=== PATIENT | male | born 1940 | race Caucasian/White ===

== ENCOUNTER → 2016-06-19 | Outpatient (CLI) | payer MEDICARE ==
[~2016-06-19] MED LIST: ALBU0.08 NEB; DIAZ5TAB PO; DILT300C3 PO; FLUT1INH INH; LEVA750T PO; LEVO750T3 PO; PANT40TA3 PO; PERI8.6T PO; PRED10 PO; ROSU10 PO; SPIRCAP INH; TEMA7.5C PO; TRAM50TA PO
[2016-06-19 08:34] LABS: BLOOD GAS BASE EXCESS 6.1 mmol/L (-2-2); BLOOD GAS CARBOXYHEMOGLOBIN 5.5 % (0-4); BLOOD GAS HCO3 30 mmol/L (22-26); BLOOD GAS METHEMOGLOBIN 1.1 % (0-2); BLOOD GAS O2 HGB SATURATION 83 % (90-100); BLOOD GAS OXYGEN CONTENT 9.6 Vol % (12.0-20.0); BLOOD GAS PCO2 45 mmHg (38-42); BLOOD GAS PO2 51 mmHg (61-120); BLOOD GAS TOTAL HGB 8.2 G/DL (12.0-16.0); TEMP CORR TO 98.6
[2016-06-19 08:35] LABS: CRITICAL VALUE YES
[2016-06-19 08:36] LABS: DRAW SITE RT RADIAL; FIO2 21 %; NUMBER OF ARTERIAL PUNCTURES 1; STAT NO; ULNAR PULSE PRESENT
--- NOTE | 2016-06-23 09:52 | RSPPFT ---
DATE OF PROCEDURE: 06/19/16 COMMENTS: Spirometry with FVC of 1.7 at 38% of predicted, FEV1 of 1.0 at 36%, FEV1/FVC ratio is decreased. Flow is decreased at FEF 25-, FEF 50, FEF 75 and FEF 25-75. There is no significant response after acutely inhaled bronchodilator treatment. Lung volumes show residual volume is increased. TLC is normal. Diffusion capacity is severely decreased. Flow volume loop indicates an obstructive pattern. Room air arterial blood gases show pH of 7.44, PCO2 of 45, PO2 of 51, BiCarb of 30 and O2 Saturation of 83%. IMPRESSION: 1. Severe obstructive lung disease. 2. No significant response to bronchodilator treatment. 3. Lung volumes show hyperinflation. 4. Severe loss in diffusion capacity. 5. Room air arterial blood gases show hypoxia on room air.
== END ==
LOC: HRSP 08:00
PROVIDERS: ATTEND Specialist
DX: J44.9 Chronic obstructive pulmonary disease, unspecified (principal)
CPT/HCPCS: 36600; 82805; 94060; 94726; 94729

== ENCOUNTER 2016-07-18 11:24 | Inpatient (IN) | payer MEDICARE ==
[2016-07-18] VITALS (24 sets, daily range): BP systolic 111–136; BP diastolic 60–99; PULSE 68–89; RESP 14–18; TEMP 97.7–98.6; O2SAT 86–100
[~2016-07-18] VITALS: Ht 182.9 cm; Wt 65.0 kg
[~2016-07-18 11:24] MED LIST changes: -DIAZ5TAB PO; -LEVO750T3 PO; -PERI8.6T PO; -TEMA7.5C PO
[2016-07-18 12:35] LABS: MEAN CORPUSCULAR HGB CONC 29.5 % (32.0-36.0)
[2016-07-18] MEDS ORDERED: SODIUM CHLORIDE 0.9% FLUSH 5 ML FLUSH IVF PRN (12:45)
--- NOTE | 2016-07-18 12:50 | PD ---
HPI Chief Complaint: Abdominal Pain Time Seen by Provider: 12:30 Travel History International Travel<30 days: No Contact w/Intl Traveler<30days: No Traveled to known affect area: No History of Present Illness HPI 75-year-old male came to the emergency room sent by his primary care for blood transfusion. Patient had his blood drawn on Sunday and he was called this morning with the results stating that his hemoglobin was 7.5. And that he needed to go to the emergency room to get 2 units of blood. Patient is a heavy smoker and has history of severe COPD. He requires 4 liters of oxygen daily. He has been short of breath when he is talking and cannot finish a sentence in one breath. However he says this is his baseline lately. He has been feeling weak and fatigued lately. Patient requires frequent blood transfusions and his last one was last [place]. No history of chest pain. As per the patient, he said that he was worked up for GI bleed in the past and they weren't able to figure out the source of his bleeding. Patient is otherwise stable hemodynamically. His oxygen saturation in triage was 86% on room air but with nasal cannula he goes up to 100%. [facility] Past Medical History Narrative Medical List of his past medical history is reviewed from the nursing note. Anemia: Yes Arthritis: Yes Cardiovascular Problems: Yes (open heart) High Cholesterol: Yes Congestive Heart Failure: Yes COPD: Yes Coronary Artery Disease: Yes Diminished Hearing: No Hypertension: Yes Respiratory: Yes (copd/ on oxygen at home) Myocardial Infarction: Yes Past Surgical History Abdominal Surgery: Yes (Hernias) Cardiac Surgery: Yes (Open heart) Coronary Artery Bypass Graft: Yes Other Surgery: Yes (Sx r/t nosebleed, penile implant ) Social History Alcohol Use: No Tobacco Use: Yes (1ppd) Substance Use: No Allergies-Medications (Allergen,Severity, Reaction): Coded Allergies: Penicillin (Verified Allergy, Unknown, 07/18/16) Patient nor his daughter remember what reaction he had to PCN. Comments List of his allergies reviewed from the nursing note. Reported Meds & Prescriptions Reported Meds & Active Scripts Active Tramadol (Tramadol HCl) 50 Mg Tab 50 Mg PO Q8H PRN Pantoprazole (Pantoprazole Sodium) 40 Mg Tab 40 Mg PO DAILY Reported Prednisone 10 Mg Tab 10 Mg PO DAILY Spiriva Handihaler (Tiotropium Inh) 18 Mcg Cap 18 Mcg INH DAILY 1 capsule = 18 mcg Crestor (Rosuvastatin Calcium) 10 Mg Tab 10 Mg PO DAILY Breo Ellipta Inh (Fluticasone/Vilanterol) 100-25 Mcg/Act Inh 1 Puff INH DAILY Use daily at the same time. Diltiazem CD 24 HR 300 Mg Caper 300 Mg PO DAILY Albuterol Neb (Albuterol Sulfate) 2.5 Mg/3 Ml Neb 2.5 Mg NEB QID NEB Narrative Medication List of his home medications reviewed from the nursing note. Review of Systems Except as stated in HPI: all other systems reviewed are Neg Physical Exam Narrative GENERAL: Awake, alert, elderly, frail, moderate distress SKIN: Warm and dry. Pale HEAD: Atraumatic. Normocephalic. EYES: Pupils equal and round. No scleral icterus. No injection or drainage. Pallor ENT: No nasal bleeding or discharge. Mucous membranes pink and moist. NECK: Trachea midline. No JVD. CARDIOVASCULAR: Regular rate and rhythm. No murmur appreciated. RESPIRATORY: Accessory muscle used for respiration. End expiratory wheezing GASTROINTESTINAL: Abdomen soft, non-tender, nondistended. Hepatic and splenic margins not palpable. MUSCULOSKELETAL: No obvious deformities. No clubbing. No cyanosis. No edema. NEUROLOGICAL: Awake and alert. No obvious cranial nerve deficits. Motor grossly within normal limits. Normal speech. PSYCHIATRIC: Appropriate mood and affect; insight and judgment normal. Data Data Last Documented VS Vital Signs Date Time Temp Pulse Resp B/P Pulse Ox O2 Delivery O2 Flow Rate FiO2 07/18/16 13:54 80 16 134/97 97 Nasal Cannula 4 07/18/16 11:28 98.3 Orders Complete Blood Count With Diff (07/18/16 12:32) Comprehensive Metabolic Panel (07/18/16 12:32) Prothrombin Time / Inr (Pt) (07/18/16 12:32) Urinalysis - C+S If Indicated (07/18/16 12:32) Type And Screen (07/18/16 12:32) Red Blood Cells (Rbc) (07/18/16 12:32) Blood Product Administration .UPON TRANSFUSION (07/18/16 12:32) Ecg Monitoring (07/18/16 12:32) Iv Access Insert/Monitor (07/18/16 12:32) Oximetry (07/18/16 12:32) Sodium Chloride 0.9% Flush (Ns Flush) (07/18/16 12:45) Electrocardiogram (07/18/16 ) Troponin I (07/18/16 12:32) Pantoprazole Inj (Protonix Inj) (07/18/16 13:45) Pantoprazole Inj (Protonix Inj) (07/18/16 13:45) Consult Gastroenterology (07/18/16 ) Chest, Single Ap (07/18/16 ) Albuterol Neb (Albuterol Neb) (07/18/16 13:15) Consult Vascular Surgery (07/18/16 ) (Hub Use Only)Inp Phy Cons/Ref (07/18/16 ) (Hub Use Only)Inp Phy Cons/Ref (07/18/16 ) Admit Order (Ed Use Only) (07/18/16 14:08) Labs Laboratory Tests Test 07/18/16 07/18/16 12:45 12:46 Prothrombin Time 11.4 SEC Prothromb Time International 1.0 RATIO Ratio Sodium Level 133 MEQ/L Potassium Level 3.8 MEQ/L Chloride Level 96 MEQ/L Carbon Dioxide Level 30.8 MEQ/L Anion Gap 6 MEQ/L Blood Urea Nitrogen 8 MG/DL Creatinine 0.83 MG/DL Estimat Glomerular Filtration 90 ML/MIN Rate Random Glucose 125 MG/DL Calcium Level 8.5 MG/DL Total Bilirubin 0.4 MG/DL Aspartate Amino Transf 9 U/L (AST/SGOT) Alanine Aminotransferase 11 U/L (ALT/SGPT) Alkaline Phosphatase 92 U/L Troponin I LESS THAN 0.02 NG/ML Total Protein 7.3 GM/DL Albumin 2.9 GM/DL Blood Type O POSITIVE Antibody Screen NEGATIVE Crossmatch Leukocyte-Reduced Red Blood Cells Blood Bank Comment White Blood Count 5.4 TH/MM3 Red Blood Count 3.76 MIL/MM3 Hemoglobin 7.8 GM/DL Hematocrit 26.5 % Mean Corpuscular Volume 70.4 FL Mean Corpuscular Hemoglobin 20.8 PG Mean Corpuscular Hemoglobin 29.5 % Concent Red Cell Distribution Width 20.3 % Platelet Count 284 TH/MM3 Mean Platelet Volume 7.3 FL Neutrophils (%) (Auto) 71.6 % Lymphocytes (%) (Auto) 15.9 % Monocytes (%) (Auto) 10.6 % Eosinophils (%) (Auto) 1.7 % Basophils (%) (Auto) 0.2 % Neutrophils # (Auto) 3.9 TH/MM3 Lymphocytes # (Auto) 0.9 TH/MM3 Monocytes # (Auto) 0.6 TH/MM3 Eosinophils # (Auto) 0.1 TH/MM3 Basophils # (Auto) 0.0 TH/MM3 CBC Comment AUTO DIFF Differential Comment AUTO DIFF CONFIRMED Platelet Estimate NORMAL Platelet Morphology Comment NORMAL Ovalocytes 1+ Keratocytes 1+ MDM Medical Decision Making Medical Screen Exam Complete: Yes Emergency Medical Condition: Yes Medical Record Reviewed: Yes Interpretation(s) Twelve-lead EKG was reviewed by me. Normal sinus rhythm, left axis deviation, old inferior IA, nonspecific ST-T wave changes, interventricular conduction delay. Heart rate of 74 bpm. Differential Diagnosis Upper GI bleed, lower GI bleed, myelodysplastic syndrome Narrative Course 1:42 PM blood test results of back and hemoglobin is 7.8. I've ordered 2 units of PRBC transfusion. Based on the past of Hemoccult test I asked GI to consult. Dr. Jose was here and saw the patient. Ordered him on Protonix bolus and drip as well. Patient will require admission. He has mild hyponatremia. I've given him a liter of fluid bolus as well. 3 PM Patient did not want any transfusion or admission till I had spoken to his . His told me that he has been requiring blood transfusion almost every 3 months. Sometimes sooner than that. He has been tested positive for blood in his stool multiple times. They know that he needs to have an endoscopy. But they are hesitant since 20 years ago, he almost after a surgery and when the took the tube out. Now he has a very narrowed airway and can not go through any surgery. They were waiting to hear back from their PMD to refer him to a specialist who can "handle" his case. I let them know that just getting transfused is not really a good way to take care of the situation. If he has GI bleed which he does, at least by the test done today, it needs to be properly looked into by a GI specialist. He was explained the risks and the benefits of transfusion, admission and GI consult. He was given choice and time to decide if he wanted these measures. Ultimately he agreed to all of them. Critical Care Narrative Aggregate critical care time was 30 minutes. Time to perform other separately billable procedures was not included in the critical care time. My time did not include minutes spent treating any other patients simultaneously or on activities that did not directly contribute to the patient's treatment. The services I provided to this patient were to treat and/or prevent clinically significant deterioration that could result in: Symptomatic anemia, GI bleed, blood transfusion, Protonix bolus and drip I provided critical care services requiring my management, as noted below: Chart data review, documentation time, medication orders and management, vital sign assessments/reviewing monitor data, ordering and reviewing lab tests, ordering and interpreting/reviewing x-rays and diagnostic studies, care of the patient and discussion of the patient with the admitting physicians. Procedures EKG Prior to Arrival: No HemaPrompt Point of Care Internal Pos. & Neg. Controls: Passed Fecal Specimen Occult Blood: Positive Physician Communication Physician Communication Dr. Jose Diagnosis Primary Impression: Symptomatic anemia Additional Impressions: GI bleeding Qualified Code: K92.2 - Gastrointestinal hemorrhage, unspecified gastrointestinal hemorrhage type Hyponatremia Admitting Information Admitting Physician Requests: Loy Lainez MD Jul 18, 2016 12:50
[2016-07-18 13:02] LABS: AUTOMATED NEUTROPHIL # 3.9 TH/MM3 (1.8-7.7); BASOPHIL % 0.2 % (0.0-2.0); EOSINOPHIL # 0.1 TH/MM3 (0-0.4); EOSINOPHIL % 1.7 % (0.0-4.0); HEMATOCRIT 26.5 % (39.0-51.0); LYMPH % 15.9 % (9.0-44.0); LYMPHOCYTE # 0.9 TH/MM3 (1.0-4.8); MEAN CELL VOLUME 70.4 FL (80.0-100.0); MEAN CORPUSCULAR HEMOGLOBIN 20.8 PG (27.0-34.0); MONO % 10.6 % (0.0-8.0); NEUT % 71.6 % (16.0-70.0); PLATELET COUNT 284 TH/MM3 (150-450); RED BLOOD COUNT 3.76 MIL/MM3 (4.50-5.90); RED CELL DISTRIBUTION WIDTH 20.3 % (11.6-17.2); WHITE BLOOD COUNT 5.4 TH/MM3 (4.0-11.0)
[2016-07-18 13:05] LABS: HEMO FLAGS AUTO DIFF
[2016-07-18 13:12] LABS: PROTHROMBIN TIME - PATIENT 11.4 SEC (9.8-11.6)
[2016-07-18] MEDS ORDERED: RESP: ALBUTEROL 2.5 MG/3 ML NEB (SCH) NEB ONE (13:15)
[2016-07-18] MEDS: PANTOPRAZOLE INJ 80 MG in SODIUM CHLORIDE 0.9% INJ 100 ML IV SCH ×2 (13:18→21:04)
[2016-07-18 13:20] LABS: ALT (GPT) 11 U/L (12-78); ANION GAP 6 MEQ/L (5-15); AST (GOT) 9 U/L (15-37); BICARBONATE 30.8 MEQ/L (21.0-32.0); BLOOD UREA NITROGEN 8 MG/DL (7-18); CHLORIDE 96 MEQ/L (98-107); GLOMERULAR FILTRATION RATE 90 ML/MIN (>89); POTASSIUM 3.8 MEQ/L (3.5-5.1); SODIUM (NA) 133 MEQ/L (136-145)
[2016-07-18 13:24] LABS: ALKALINE PHOSPHATASE 92 U/L (45-117); TOTAL BILIRUBIN ADULT 0.4 MG/DL (0.2-1.0)
--- NOTE | 2016-07-18 13:34 | RADRPT ---
EXAM DATE/TIME: 07/18/2016 00:00 [place] COMPARISON: CHEST PA & LAT, June 01, 2016, 13:36. CHEST SINGLE AP, June 03, 2016, 15:17. INDICATIONS : Shortness of breath. MEDICAL HISTORY : Chronic obstructive pulmonary disease. Congestive heart failure. SURGICAL HISTORY : CABG. ENCOUNTER: Initial ACUITY: 1 day PAIN SCORE: 0/10 LOCATION: Bilateral chest FINDINGS: A single view of the chest demonstrates the lungs to be symmetrically aerated without evidence of mas s, infiltrate or effusion. There is stable scarring at the lung bases right left costophrenic angle remains blunted. There are overlying electrocardiogram leads. Patient is status post median sternotom y. The cardiomediastinal contours are unremarkable. Osseous structures are intact. CONCLUSION: 1. Chronic scarring at the lung bases left greater than right. 2. No evidence of pneumonia or pulmonary edema. Conor Lunsford MD on July 18, 2016 at 13:32 Board Certified Radiologist. This report was verified electronically.
--- NOTE | 2016-07-18 13:39 | PD.CONS ---
HPI History of Present Illness This is a 75 year old male with past medical history of COPD, CHF, CAD, CO, aortic aneurysm, anemia who presents to [facility] upon Dr. Manzano instruction to go to the ED in order to get 2 units of blood due to OP labs of 7.5. Patient was seen by our GI services back in May of 2016 for hgb of 3.9 and was refusing EGD/colonoscopy at the time, eventually he agreed to having EGD, however, he was discharged before having this done. Patient denies any active bleeding, denies nausea, vomiting, abdomen pain, or hematochezia. He has family history of colon cancer, his sister had it. He reports black stools but he is on iron supplement. wt loss of over 30 ibs within the past 2 years. he is on steroids and occasional use of NSAIDs, on alcohol, CEA back in May was normal. (Karen Bello) PFSH Past Medical History COPD CHF HF Aortic aneurysm Past Surgical History Hernia repair Open heart surgery Penile implant (Karen Bello) Coded Allergies: Penicillin (Verified Allergy, Unknown, 07/18/16) Patient nor his daughter remember what reaction he had to PCN. Medications Current Medications Medications (Trade) Dose Ordered Sig/Hank Route Start Time Stop Time Status Last Admin IV Flush 2 ml 2 ml UNSCH PRN IVF 07/18/16 12:45 Pantoprazole Sodium 80 mg/ Sodium Chloride 35 ml @ 420 mls/hr ONCE ONCE IV 07/18/16 13:45 07/18/16 13:49 07/18/16 13:01 (Protonix Inj/NS Inj) 100 ml @ 10 mls/hr Q10H IV 07/18/16 13:45 Family History Colon cancer, his sister cancer on mother side Social History Alcohol Use: No Tobacco Use: Yes, 1 pack a day Substance Use: No (Karen Bello) Review of Systems Constitutional: COMPLAINS OF: Fatigue, DENIES: Chills Endocrine: DENIES: Polyuria Eyes: DENIES: Double Vision Ears, nose, mouth, throat: DENIES: Hoarseness Respiratory: DENIES: Shortness of breath Cardiovascular: DENIES: Lower Extremity Edema Gastrointestinal: DENIES: Abdominal pain, Black stools, Bloody stools, Constipation, Diarrhea, Nausea, Vomiting, Difficulty Swallowing, Anorexia, Odynophagia, Swelling of Abdomen, Heartburn, Hematemesis Genitourinary: DENIES: Nocturia Musculoskeletal: DENIES: Neck pain Integumentary: DENIES: Jaundice Immunologic/allergic: DENIES: Eczema Neurologic: DENIES: Abnormal gait Psychiatric: DENIES: Anxiety (Karen BelloP) GI Exam Vitals I&O Vital Signs Date Time Temp Pulse Resp B/P Pulse Ox O2 Delivery O2 Flow Rate FiO2 07/18/16 13:03 18 07/18/16 12:52 78 16 132/79 100 Nasal Cannula 4 07/18/16 12:51 100 Nasal Cannula 4 07/18/16 11:28 98.3 89 14 111/65 86 Room Air Laboratory Test 07/18/16 07/18/16 12:45 12:46 Prothrombin Time 11.4 SEC Prothromb Time International 1.0 RATIO Ratio Blood Type O POSITIVE White Blood Count 5.4 TH/MM3 Red Blood Count 3.76 MIL/MM3 Hemoglobin 7.8 GM/DL Hematocrit 26.5 % Mean Corpuscular Volume 70.4 FL Mean Corpuscular Hemoglobin 20.8 PG Mean Corpuscular Hemoglobin 29.5 % Concent Red Cell Distribution Width 20.3 % Platelet Count 284 TH/MM3 Mean Platelet Volume 7.3 FL Neutrophils (%) (Auto) 71.6 % Lymphocytes (%) (Auto) 15.9 % Monocytes (%) (Auto) 10.6 % Eosinophils (%) (Auto) 1.7 % Basophils (%) (Auto) 0.2 % Neutrophils # (Auto) 3.9 TH/MM3 Lymphocytes # (Auto) 0.9 TH/MM3 Monocytes # (Auto) 0.6 TH/MM3 Eosinophils # (Auto) 0.1 TH/MM3 Basophils # (Auto) 0.0 TH/MM3 CBC Comment AUTO DIFF Physical Examination HEENT: normocephalic; atraumatic; no jaundice. Throat is clear. NECK: Neck is supple, no JVD, no lymphadenopathy. CHEST: Chest is clear to auscultation and percussion. CARDIAC: Regular rate and rhythm with no murmur gallop or rubs. ABDOMEN: Soft, nondistended, nontender; no hepatosplenomegaly; bowel sounds are present in all four quadrants. EXTREMITIES: No clubbing, cyanosis, or edema. SKIN: Normal; no rash; no jaundice. HAT AND CAP DRYING ROOM ATTENDANT: No focal deficits; alert and oriented times three. (Karen Bello) Assessment and Plan Plan - Severe anemia- Patient is here upon Dr. Manzano instruction for 2 units of blood transfusion due to OP labs of 7.7. Patient was seen by our GI services back in May of 2016 for hgb of 3.9 and was refusing EGD/colonoscopy at the time, eventually he agreed to having EGD, however, he was discharged before having this done. Patient denies any active bleeding, denies nausea, vomiting, abdomen pain, or hematochezia. He has family history of colon cancer, his sister had it. He reports black stools but he is on iron supplement. wt loss of over 30 ibs within the past 2 years. he is on steroids and occasional use of NSAIDs, on alcohol, CEA back in May was normal. PPI, patient is agreeing this time - Wt loss/poor appetite- wt loss of over 30 ibs within the past 2 years. - family history of colon cancer- sister - Large aortic aneurysm- Patient had it for a long time, not surgical candidate , will consult vascular surgeon for clearance - history of COPD, CAD, HTN per primary Plan: - Clear liquids - EGD/colonoscopy once cleared by vascular surgeon, he is high risk - Monitor hh - Transfuse as needed - Supportive care - Patient seen and examined by Dr. Jose and myself and this note is written on his behalf. (Karen Bello) Physician Comments Seen and examined with UPPER TIER, no active bleeding reported but back again for anemia. Very high risk due to large 6.6cm aortic aneurysm, discussed with Anesthesia, they recommended cardiac clearance. Cvascular surgery consulted. Will proceed with gi condon once pt. cleared by surgery. Discussed with Dr. Orozco, and [place].Thank you (Alma Jose MD) Karen Bello Jul 18, 2016 13:39 Alma Jose MD Jul 18, 2016 17:37
[2016-07-18 13:43] LABS: KERATOCYTES 1+ (NORMAL); OVALOCYTES 1+ (NORMAL); PLATELET ESTIMATE SMEAR NORMAL (NORMAL); PLATELET MORPHOLOGY NORMAL (NORMAL); SCAN/DIFF AUTO DIFF CONFIRMED
[2016-07-18] MEDS ORDERED: PANTOPRAZOLE INJ 80 MG in SODIUM CHLORIDE 0.9% INJ 35 ML IV ONE (13:45)
[2016-07-18 14:58] LABS: BACTERIA, URINE RARE /hpf; BLOOD, URINE NEG (NEG); COMMENT (UR) CULTURE INDICATED; CULTURE IF INDICATED CULTURE INDICATED; GLUCOSE,URINE NEG (NEG); KETONE, URINE NEG (NEG); NITRITE,URINE NEG (NEG); URINE COLOR YELLOW (YELLW/STRAW)
--- NOTE | 2016-07-18 15:33 | HHI.HP ---
cc: Alex Rosales MD [facility] Alex Rosales MD Admission Diagnosis symptomatic anemia, GI bleed Diagnoses: (1) Symptomatic anemia (2) GI bleeding (3) Abdominal aortic aneurysm (AAA), not a candidate for repair (4) Chronic respiratory failure with hypoxia (5) Hypertension (6) Hyperlipidemia (7) Coronary artery disease (8) COPD (chronic obstructive pulmonary disease) (9) Hyponatremia Chief Complaint: Anemia Travel History International Travel<30 Days: No Contact w/Intl Traveler <30 Da: No Traveled to Known Affected Are: No History of Present Illness The patient is a 75-year-old male who was sent to the emergency department by his primary care physician for transfusion of 2 units PRBCs. He was found to have hemoglobin of 7.5 as an outpatient today. He states that he has had chronic problems with blood in his stool. He denies ever seeing any red blood, but his stools are dark. He reports midepigastric pain that is unchanged recently. He was hospitalized in May for similar symptoms. EGD and colonoscopy were not done at that time apparently. The patient states that he just established with a new primary care physician on Sunday and notes when he had the blood work done. He reports feeling tired. He has had worsening shortness of breath in the past few days, more than his baseline COPD. Review of Systems Constitutional: DENIES: Fever, Chills, Night Sweats Eyes: DENIES: Blurred vision, Vision loss Ears, nose, mouth, throat: DENIES: Hearing loss Respiratory: COMPLAINS OF: Shortness of breath, DENIES: Cough, Wheezing, Sputum production Cardiovascular: DENIES: Chest pain, Palpitations, Dyspnea on Exertion, Lower Extremity Edema Gastrointestinal: COMPLAINS OF: Abdominal pain, DENIES: Constipation, Diarrhea , Nausea, Vomiting Genitourinary: DENIES: Urinary frequency, Urinary incontinence, Urgency, Hematuria, Dysuria, Nocturia Musculoskeletal: DENIES: Joint pain, Muscle aches Integumentary: DENIES: Pruritus, Rash Hematologic/lymphatic: DENIES: Bruising Neurologic: DENIES: Headache Past Family Social History Past Medical History COPD Chronic respiratory failure Gout Hypertension Hyperlipidemia Anemia AAA Past Surgical History Hernia repair x2 CABG x3 vessels Surgery for epistaxis Penile implant Reported Medications Tramadol (Tramadol HCl) 50 Mg Tab 50 Mg PO Q8H PRN Pantoprazole (Pantoprazole Sodium) 40 Mg Tab 40 Mg PO DAILY Levaquin (Levofloxacin) 750 Mg Tab 750 Mg PO DAILY Prednisone 10 Mg Tab 10 Mg PO DAILY Spiriva Handihaler (Tiotropium Inh) 18 Mcg Cap 18 Mcg INH DAILY 1 capsule = 18 mcg Crestor (Rosuvastatin Calcium) 10 Mg Tab 10 Mg PO DAILY Breo Ellipta Inh (Fluticasone/Vilanterol) 100-25 Mcg/Act Inh 1 Puff INH DAILY Use daily at the same time. Diltiazem CD 24 HR 300 Mg Caper 300 Mg PO DAILY Albuterol Neb (Albuterol Sulfate) 2.5 Mg/3 Ml Neb 2.5 Mg NEB QID NEB Allergies: Coded Allergies: Penicillin (Verified Allergy, Unknown, 07/18/16) Patient nor his daughter remember what reaction he had to PCN. Family History Colon cancer Social History Smokes 1ppd. No alcohol or illicit drug use. Physical Exam Vital Signs Vital Signs Date Time Temp Pulse Resp B/P Pulse Ox O2 Delivery O2 Flow Rate FiO2 07/18/16 15:10 98.3 81 15 136/80 96 Nasal Cannula 07/18/16 15:05 98.6 75 16 136/81 97 Nasal Cannula 4 07/18/16 14:52 98.4 78 16 128/76 99 Nasal Cannula 4 07/18/16 13:54 80 16 134/97 97 Nasal Cannula 4 07/18/16 13:50 95 Nasal Cannula 4.00 07/18/16 13:03 18 07/18/16 12:52 78 16 132/79 100 Nasal Cannula 4 07/18/16 12:51 100 Nasal Cannula 4 07/18/16 11:28 98.3 89 14 111/65 86 Room Air Physical Exam GENERAL: Thin elderly male in no acute distress. HEENT: Normocephalic, atraumatic. Pupils equal, round and reactive. Extraocular movements intact. No scleral icterus. No injection or drainage. Oropharynx is clear. Mucous membranes are moist. CARDIOVASCULAR: Regular rate and rhythm without murmurs, gallops, or rubs. RESPIRATORY: Decreased breath sounds throughout. Diffuse wheeze. Breathing is non-labored. GASTROINTESTINAL: Abdomen soft, non-tender, nondistended. Palpable mass noted. EXTREMITIES: No lower extremity edema. No calf tenderness. PSYCH: Alert and oriented x 3. Laboratory Laboratory Tests Test 07/18/16 07/18/16 07/18/16 12:45 12:46 14:27 Prothrombin Time 11.4 Prothromb Time International 1.0 Ratio Sodium Level 133 Potassium Level 3.8 Chloride Level 96 Carbon Dioxide Level 30.8 Anion Gap 6 Blood Urea Nitrogen 8 Creatinine 0.83 Estimat Glomerular Filtration 90 Rate Random Glucose 125 Calcium Level 8.5 Total Bilirubin 0.4 Aspartate Amino Transf 9 (AST/SGOT) Alanine Aminotransferase 11 (ALT/SGPT) Alkaline Phosphatase 92 Troponin I LESS THAN 0.02 Total Protein 7.3 Albumin 2.9 Blood Type O POSITIVE Antibody Screen NEGATIVE Crossmatch Leukocyte-Reduced Red Blood Cells Blood Bank Comment White Blood Count 5.4 Red Blood Count 3.76 Hemoglobin 7.8 Hematocrit 26.5 Mean Corpuscular Volume 70.4 Mean Corpuscular Hemoglobin 20.8 Mean Corpuscular Hemoglobin 29.5 Concent Red Cell Distribution Width 20.3 Platelet Count 284 Mean Platelet Volume 7.3 Neutrophils (%) (Auto) 71.6 Lymphocytes (%) (Auto) 15.9 Monocytes (%) (Auto) 10.6 Eosinophils (%) (Auto) 1.7 Basophils (%) (Auto) 0.2 Neutrophils # (Auto) 3.9 Lymphocytes # (Auto) 0.9 Monocytes # (Auto) 0.6 Eosinophils # (Auto) 0.1 Basophils # (Auto) 0.0 CBC Comment AUTO DIFF Differential Comment AUTO DIFF CONFIRMED Platelet Estimate NORMAL Platelet Morphology Comment NORMAL Ovalocytes 1+ Keratocytes 1+ Urine Color YELLOW Urine Turbidity CLOUDY Urine pH 8.0 Urine Specific [place] 1.012 Urine Protein 30 Urine Glucose (UA) NEG Urine Ketones NEG Urine Occult Blood NEG Urine Nitrite NEG Urine Bilirubin NEG Urine Urobilinogen LESS THAN 2.0 Urine Leukocyte Esterase NEG Urine RBC 2 Urine WBC 17 Urine Amorphous Sediment RARE Urine Bacteria RARE Microscopic Urinalysis Comment CULTURE INDICATED Date/Time Procedure Status Source Growth 07/18/16 14:27 Urine Culture Received Urine Clean Catch Pending Result Diagram: 07/18/16 1246 07/18/16 1245 Imaging Last Impressions Chest X-Ray 07/18/16 0000 Signed Impressions: Service Date/Time: Monday, July 18, 2016 00:00 - CONCLUSION: 1. Chronic scarring at the lung bases left greater than right. 2. No evidence of pneumonia or pulmonary edema. Conor Lunsford MD Assessment and Plan Assessment and Plan 1. Symptomatic anemia: Patient was referred to the ER by his PCP for blood transfusion. Currently receiving the first of 2 units PRBCs. Monitor H&H. 2. GI bleed: Patient states that he has had chronic dark stools and no red blood. Hemoccult is positive. Discussed with Dr. Jose. GI is planning EGD and colonoscopy when patient is cleared by vascular surgery. Protonix drip. 3. AAA: Appreciate vascular surgery recommendations. Further workup with CTA and 2-D echocardiogram. 4. COPD: Chronic, stable. Continue oxygen, bronchodilators. Consult patient's drop wirer, Dr. Ames. 5. CAD, hypertension, hyperlipidemia: Status post CABG 3 vessels. Continue statin. Continue diltiazem. Problem Qualifiers (1) GI bleeding: Qualified Code: K92.2 - Gastrointestinal hemorrhage, unspecified gastrointestinal hemorrhage type Hilario Orozco MD Jul 18, 2016 15:33
--- NOTE | 2016-07-18 15:56 | PD.VS.CON ---
History of Present Illness Chief Complaint: AAA Consult Requested by: GI medicine History of Present Illness 75 yo male with known history of AAA, known for years and has been told in the past that he is not a candidate for repair. Presented with 3y h/o lower GI bleeding. No abdominal and back pain. Past/Family/Social History Past Medical History GIB AAA COPD HTN hyperlipidemia CAD Past Surgical History CABG Hernia repair Social History smokes 1ppd Family History colon cancer Home Medications Active Scripts Tramadol 50 Mg Tab50 Mg PO Q8H PRN (PAIN) #15 TAB Ref 0 Prov:Doreen Nur DO 06/05/16 Pantoprazole 40 Mg Tab40 Mg PO DAILY #30 TAB Ref 0 Prov:Eleni Hammer PA-C 06/05/16 Reported Medications Prednisone 10 Mg Tab10 Mg PO DAILY Ref 0 06/01/16 Tiotropium Inh (Spiriva Handihaler)18 Mcg Cap18 Mcg INH DAILY #30 CAP Ref 0 1 capsule = 18 mcg 06/01/16 Rosuvastatin (Crestor)10 Mg Tab10 Mg PO DAILY #30 TAB Ref 0 06/01/16 Fluticasone-Vilanterol Inh (Breo Ellipta Inh)100-25 Mcg/Act Inh1 Puff INH DAILY #1 INHALER Ref 0 Use daily at the same time. 06/01/16 Diltiazem CD 24 HR 300 Mg [id number] Mg PO DAILY #30 CAP Ref 0 06/01/16 Albuterol Neb 2.5 Mg/3 Ml Neb2.5 Mg NEB QID NEB #60 NEBULE Ref 0 06/01/16 Discontinued Scripts Levofloxacin (Levaquin)750 Mg [id number] Mg PO DAILY #10 TAB Ref 0 Prov:Eleni Hammer PA-C 06/05/16 Coded Allergies: Penicillin (Verified Allergy, Unknown, 07/18/16) Patient nor his daughter remember what reaction he had to PCN. Review of Systems Respiratory: COMPLAINS OF: Shortness of breath Gastrointestinal: COMPLAINS OF: Bloody stools Musculoskeletal: COMPLAINS OF: Joint pain Physical Exam Vitals/I&O Date Time Temp Pulse Resp B/P Pulse Ox O2 Delivery O2 Flow Rate FiO2 07/18/16 15:15 98.0 79 15 136/63 97 Nasal Cannula 4 07/18/16 15:10 98.3 81 15 136/80 96 Nasal Cannula 07/18/16 15:05 98.6 75 16 136/81 97 Nasal Cannula 4 07/18/16 14:52 98.4 78 16 128/76 99 Nasal Cannula 4 07/18/16 13:54 80 16 134/97 97 Nasal Cannula 4 07/18/16 13:50 95 Nasal Cannula 4.00 07/18/16 13:03 18 07/18/16 12:52 78 16 132/79 100 Nasal Cannula 4 07/18/16 12:51 100 Nasal Cannula 4 07/18/16 11:28 98.3 89 14 111/65 86 Room Air 07/18/16 07/18/16 07/18/16 07:00 15:00 23:00 Output Total 200 ml Balance -200 ml Neuro: Alert, oriented HEENT: NC/AT Neck: trachea midline Heart: midline sternotomy incision healed Lungs: active breathing treatment Abdomen: palpable non tender abdominal mass Vascular: palpable femoral pulses Laboratory Tests Test 07/18/16 07/18/16 07/18/16 12:45 12:46 14:27 Prothrombin Time 11.4 Prothromb Time International 1.0 Ratio Sodium Level 133 Potassium Level 3.8 Chloride Level 96 Carbon Dioxide Level 30.8 Anion Gap 6 Blood Urea Nitrogen 8 Creatinine 0.83 Estimat Glomerular Filtration 90 Rate Random Glucose 125 Calcium Level 8.5 Total Bilirubin 0.4 Aspartate Amino Transf 9 (AST/SGOT) Alanine Aminotransferase 11 (ALT/SGPT) Alkaline Phosphatase 92 Troponin I LESS THAN 0.02 Total Protein 7.3 Albumin 2.9 Blood Type O POSITIVE Antibody Screen NEGATIVE Crossmatch Leukocyte-Reduced Red Blood Cells Blood Bank Comment White Blood Count 5.4 Red Blood Count 3.76 Hemoglobin 7.8 Hematocrit 26.5 Mean Corpuscular Volume 70.4 Mean Corpuscular Hemoglobin 20.8 Mean Corpuscular Hemoglobin 29.5 Concent Red Cell Distribution Width 20.3 Platelet Count 284 Mean Platelet Volume 7.3 Neutrophils (%) (Auto) 71.6 Lymphocytes (%) (Auto) 15.9 Monocytes (%) (Auto) 10.6 Eosinophils (%) (Auto) 1.7 Basophils (%) (Auto) 0.2 Neutrophils # (Auto) 3.9 Lymphocytes # (Auto) 0.9 Monocytes # (Auto) 0.6 Eosinophils # (Auto) 0.1 Basophils # (Auto) 0.0 CBC Comment AUTO DIFF Differential Comment AUTO DIFF CONFIRMED Platelet Estimate NORMAL Platelet Morphology Comment NORMAL Ovalocytes 1+ Keratocytes 1+ Urine Color YELLOW Urine Turbidity CLOUDY Urine pH 8.0 Urine Specific [place] 1.012 Urine Protein 30 Urine Glucose (UA) NEG Urine Ketones NEG Urine Occult Blood NEG Urine Nitrite NEG Urine Bilirubin NEG Urine Urobilinogen LESS THAN 2.0 Urine Leukocyte Esterase NEG Urine RBC 2 Urine WBC 17 Urine Amorphous Sediment RARE Urine Bacteria RARE Microscopic Urinalysis Comment CULTURE INDICATED Date/Time Procedure Status Source Growth 07/18/16 14:27 Urine Culture Received Urine Clean Catch Pending Last 48 hours Impressions Chest X-Ray 07/18/16 0000 Signed Impressions: Service Date/Time: Monday, July 18, 2016 00:00 - CONCLUSION: 1. Chronic scarring at the lung bases left greater than right. 2. No evidence of pneumonia or pulmonary edema. Conor Lunsford MD Assessment and Plan Plan AAA, previously told not a candidate for repair. Recommend CTA C/A/P and TTE for risk stratification. Will follow. Valentin Reynoso MD Jul 18, 2016 15:56
[2016-07-18] MEDS ORDERED: MAGNESIUM HYDROXIDE SUSP 30 ML CUP PO PRN (16:15)
[2016-07-18] MEDS ORDERED: ONDANSETRON HCL 4 MG/2 ML VIAL IVP PRN (16:15)
[2016-07-18] MEDS ORDERED: ACETAMINOPHEN 325 MG TAB PO PRN (16:15)
[2016-07-18] MEDS ORDERED: RESP: ALBUTEROL 2.5 MG/3 ML NEB (PRN) NEB (16:15)
[2016-07-18] MEDS ORDERED: SODIUM CHLORIDE 0.9% FLUSH 5 ML FLUSH FLUSH PRN (16:15)
[2016-07-18] MEDS ORDERED: NALOXONE HCL 0.4 MG/ML AMP IV PRN (16:15)
--- NOTE | 2016-07-18 20:52 | MB ---
cc: CARMEN ESCOBEDO MD DATE OF CONSULTATION 07/18/[address] Hilario Orozco. REASON FOR CONSULTATION Evaluate for chronic obstructive pulmonary disease. HISTORY OF THE PRESENT ILLNESS Mr. Quiroga is a pleasant 75-year-old male who is known to me from the office. He has a longstanding history of COPD. He uses oxygen. He has a history of smoking which he continued until two days ago. The patient has history of chronic blood loss. He had blood work done. His hemoglobin on 7.5. He was sent over here for transfusion the patient is seen by GI and he is being planned for endoscopy. He has mild shortness of breath. No fever or chest pain. No abdominal pain. PAST MEDICAL HISTORY Significant for: 1. History of COPD. 2. Chronic hypoxia. He is oxygen dependent. 3. Hypertension. 4. Chronic anemia. 5. Coronary artery disease status post CABG. 6. History of penile implant. 7. History of hernia surgery. MEDICATIONS He is currently takin. Cardizem CD 300 mg a day. 2. Breo Ellipta 100/25 one daily. 3. Prednisone 10 mg a day. 4. Spiriva once a day. 5. Lipitor 20 mg a day. 6. Albuterol/Atrovent nebulizer treatment. 7. Protonix drip. ALLERGIES PENICILLIN. SOCIAL HISTORY He has a long history of smoking until two days ago. Now he is wearing a patch. No alcohol abuse. He is retired. FAMILY HISTORY He lives with his . REVIEW OF SYSTEMS He denies any weight loss. No headache or dizziness. No nausea or vomiting. No chest pain. PHYSICAL EXAMINATION GENERAL: Elderly male, mild short of breath. VITAL SIGNS: Blood pressure 135/99, heart rate 73, respiration 18, temperature 98.1. HEENT: Examination unremarkable. NECK: Supple. JVP not raised. CHEST: He has basilar rales. CARDIOVASCULAR: S1-S2 normal. ABDOMEN: Benign. EXTREMITIES: No edema. LABORATORY DATA Lab evaluation WBC count is 5.4, hemoglobin 7.8, hematocrit 26.5, MCV 70, platelet count 284. Sodium 133, potassium 3.8, chloride 96, CO2 30, BUN 8, creatinine 0.83. INR is 1.0. IMAGING Chest x-ray shows chronic scarring at the left base. No pneumonia. IMPRESSION 1. COPD. 2. Nicotine use. 3. Blood loss anemia. 4. Coronary artery disease status post CABG. 5. Nicotine use. PLAN I discussed with the patient he is being transfused and GI workup is underway. We will give him supplemental oxygen. Continue aerosol treatment, p.o. prednisone. He is using nicotine patch. Further treatment will depend on the course in the hospital. Thank you Dr. Orozco for this consultation. MD [place] May/CONSTANTIN /8:23 PM /8:37 PM
[2016-07-18] MEDS: SODIUM CHLORIDE 0.9% FLUSH 5 ML FLUSH FLUSH SCH (21:00)
[2016-07-18] MEDS: RESP: ALBUTEROL 2.5 MG/IPRATROPIUM 0.5 MG NEB (SCH) NEB (22:18)
[2016-07-18] MEDS ORDERED: TEMAZEPAM 7.5 MG CAP PO ONE (22:45)
[2016-07-19 01:10] VITALS: BP 144/69; PULSE 75; RESP 18; TEMP 98.1; O2SAT 92
[2016-07-19] MEDS: PANTOPRAZOLE INJ 80 MG in SODIUM CHLORIDE 0.9% INJ 100 ML IV SCH (05:11)
[2016-07-19 05:33] VITALS: BP 163/83; PULSE 80; RESP 18; TEMP 97.1; O2SAT 93
[2016-07-19 06:26] LABS: AUTOMATED NEUTROPHIL # 3.8 TH/MM3 (1.8-7.7); BASOPHIL % 0.1 % (0.0-2.0); EOSINOPHIL # 0.1 TH/MM3 (0-0.4); EOSINOPHIL % 2.5 % (0.0-4.0); HEMATOCRIT 30.8 % (39.0-51.0); LYMPHOCYTE # 0.8 TH/MM3 (1.0-4.8); MEAN CELL VOLUME 71.9 FL (80.0-100.0); MEAN CORPUSCULAR HEMOGLOBIN 22.7 PG (27.0-34.0); MEAN CORPUSCULAR HGB CONC 31.6 % (32.0-36.0); MONO % 11.9 % (0.0-8.0); NEUT % 70.5 % (16.0-70.0); PLATELET COUNT 249 TH/MM3 (150-450); RED BLOOD COUNT 4.28 MIL/MM3 (4.50-5.90); RED CELL DISTRIBUTION WIDTH 20.6 % (11.6-17.2); WHITE BLOOD COUNT 5.4 TH/MM3 (4.0-11.0)
[2016-07-19 06:32] LABS: HEMO FLAGS AUTO DIFF
[2016-07-19 06:42] LABS: BICARBONATE 28.8 MEQ/L (21.0-32.0); POTASSIUM 3.8 MEQ/L (3.5-5.1)
[2016-07-19 07:21] VITALS: BP 148/91; PULSE 81; RESP 16; TEMP 97.2; O2SAT 97
[2016-07-19] MEDS: RESP: ALBUTEROL 2.5 MG/IPRATROPIUM 0.5 MG NEB (SCH) NEB ×2 (07:59→12:16)
[2016-07-19 08:01] VITALS: O2SAT 96
[2016-07-19 08:05] LABS: KERATOCYTES OCC (NORMAL); PLATELET ESTIMATE SMEAR NORMAL (NORMAL); PLATELET MORPHOLOGY NORMAL (NORMAL); SCAN/DIFF AUTO DIFF CONFIRMED
[2016-07-19 08:06] LABS: OVALOCYTES 1+ (NORMAL)
--- NOTE | 2016-07-19 08:09 | HHI.PR ---
Subjective Remarks Follow up GI bleed, anemia. Patient states that he feels tired today. He wants to go home. He says that if the procedure is not going to be done today that he would like to be discharged and schedule everything as an outpatient. Objective Vitals Vital Signs Date Time Temp Pulse Resp B/P Pulse Ox O2 Delivery O2 Flow Rate FiO2 07/19/16 08:01 96 Nasal Cannula 4.00 07/19/16 07:21 97.2 81 16 148/91 97 07/19/16 05:33 97.1 80 18 163/83 93 07/19/16 01:10 98.1 75 18 144/69 92 07/18/16 22:58 98 Nasal Cannula 4.00 07/18/16 20:05 98.1 73 18 135/99 93 07/18/16 19:22 80 18 121/69 100 Nasal Cannula 4 07/18/16 19:00 98.2 75 18 133/78 97 Nasal Cannula 4 07/18/16 18:30 97.9 17 130/75 98 Nasal Cannula 4 07/18/16 18:15 97.7 79 18 130/80 97 Nasal Cannula 4 07/18/16 18:10 97.7 75 16 133/60 99 Nasal Cannula 4 07/18/16 18:05 97.8 75 17 130/70 98 Nasal Cannula 4 07/18/16 18:00 98.0 76 16 133/77 98 Nasal Cannula 4 07/18/16 17:45 98.0 72 16 130/70 98 Nasal Cannula 07/18/16 17:15 98.0 68 15 128/72 99 Nasal Cannula 07/18/16 16:15 98.0 71 15 127/78 97 Nasal Cannula 4 07/18/16 16:00 98.2 80 15 116/71 98 Nasal Cannula 4 07/18/16 15:45 98.0 82 16 136/63 99 Nasal Cannula 4 07/18/16 15:30 97.9 70 16 128/72 98 Nasal Cannula 4 07/18/16 15:15 98.0 79 15 136/63 97 Nasal Cannula 4 07/18/16 15:10 98.3 81 15 136/80 96 Nasal Cannula 07/18/16 15:05 98.6 75 16 136/81 97 Nasal Cannula 4 07/18/16 14:52 98.4 78 16 128/76 99 Nasal Cannula 4 07/18/16 13:54 80 16 134/97 97 Nasal Cannula 4 07/18/16 13:50 95 Nasal Cannula 4.00 07/18/16 13:03 18 07/18/16 12:52 78 16 132/79 100 Nasal Cannula 4 07/18/16 12:51 100 Nasal Cannula 4 07/18/16 11:28 98.3 89 14 111/65 86 Room Air I/O 07/18/16 07/18/16 07/18/16 07/19/16 07/19/16 07/19/16 07:00 15:00 23:00 07:00 15:00 23:00 Intake Total 240 ml Output Total 200 ml 900 ml Balance 40 ml -900 ml Intake Oral 240 ml Output Urine Total 200 ml 900 ml Result Diagram: 07/19/16 0555 07/19/16 0555 Imaging Last Impressions Chest X-Ray 07/18/16 0000 Signed Impressions: Service Date/Time: Monday, July 18, 2016 00:00 - CONCLUSION: 1. Chronic scarring at the lung bases left greater than right. 2. No evidence of pneumonia or pulmonary edema. Conor Lunsford MD Objective Remarks General: Thin elderly male in no acute distress. Heart: Regular rate and rhythm. No murmur. Lungs: Decreased breath sounds throughout. Scattered wheeze. Breathing is nonlabored. Abdomen: Soft, nontender, nondistended. Extremities: No lower extremity edema. Psych: Alert and oriented. Urinary Catheter: No Vascular Central Line Catheter: No A/P Problem List: (1) Symptomatic anemia ICD Code: D64.9 Status: Acute (2) GI bleeding ICD Code: K92.2 Status: Acute (3) Abdominal aortic aneurysm (AAA), not a candidate for repair ICD Code: I71.4 Status: Chronic (4) Chronic respiratory failure with hypoxia ICD Code: J96.11 Status: Chronic (5) Hypertension ICD Code: I10 Status: Chronic (6) Hyperlipidemia ICD Code: E78.5 Status: Chronic (7) Coronary artery disease ICD Code: I25.10 Status: Chronic (8) COPD (chronic obstructive pulmonary disease) ICD Code: J44.9 Status: Chronic (9) Hyponatremia ICD Code: E87.1 Status: Acute (10) Tobacco abuse ICD Code: Z72.0 Status: Chronic Assessment and Plan 1. Symptomatic anemia: H&H improved following transfusion. 2. GI bleed: Patient states that he has had chronic dark stools and no red blood. Hemoccult is positive. GI is planning EGD and colonoscopy when patient is cleared by vascular surgery. Protonix drip. 3. AAA: Appreciate vascular surgery recommendations. Further workup with CTA and 2-D echocardiogram per vascular surgery. 4. COPD: Chronic, stable. Continue oxygen, bronchodilators. Appreciate pulmonology recommendations. 5. CAD, hypertension, hyperlipidemia: Status post CABG 3 vessels. Continue statin. Continue diltiazem. 6. Tobacco abuse: Counseled to quit smoking. Patient is using nicotine patch to try to quit. 7. DVT prophylaxis: SCDs, DAVID germain. Avoid chemical prophylaxis secondary to GI bleed, anemia. Problem Qualifiers (1) GI bleeding: Qualified Code: K92.2 - Gastrointestinal hemorrhage, unspecified gastrointestinal hemorrhage type Hilario Orozco MD Jul 19, 2016 08:09
[2016-07-19] MEDS ORDERED: ATORVASTATIN 20 MG TAB PO SCH (09:00)
[2016-07-19] MEDS ORDERED: TIOTROPIUM BROMIDE 18 MCG INH INH SCH (09:00)
[2016-07-19] MEDS ORDERED: DILTIAZEM-CD 300 MG CAP ER PO SCH (09:00)
[2016-07-19] MEDS ORDERED: NICOTINE 14 MG/24 HR PATCH TD SCH (09:00)
[2016-07-19] MEDS ORDERED: predniSONE 10 MG TAB PO SCH (09:00)
[2016-07-19] MEDS ORDERED: FLUTICASONE 100 MCG/VILANTEROL 25 MCG INHALER INH SCH (09:00)
[2016-07-19] MEDS: SODIUM CHLORIDE 0.9% FLUSH 5 ML FLUSH FLUSH SCH (10:17)
[2016-07-19 11:58] VITALS: BP 154/89; PULSE 78; RESP 18; TEMP 97.5; O2SAT 93
--- NOTE | 2016-07-19 12:00 | HHI.DCPOC ---
Discharge Care Plan Diagnosis: (1) Abdominal aortic aneurysm (AAA), not a candidate for repair (2) Chronic respiratory failure with hypoxia (3) Hypertension (4) Symptomatic anemia (5) COPD (chronic obstructive pulmonary disease) (6) Coronary artery disease (7) Hyperlipidemia (8) Tobacco abuse Goals to Promote Your Health * To prevent worsening of your condition and complications * To maintain your health at the optimal level Directions to Meet Your Goals Take your medications as prescribed Follow your dietary instruction Follow activity as directed Keep your appointments as scheduled Take your immunizations and boosters as scheduled If your symptoms worsen call your PCP, if no PCP go to Urgent Care Center or Emergency Room Smoking is Dangerous to Your Health. Avoid second hand smoke Call the 24-hour hour crisis hotline for domestic abuse at Hilario Orozco MD Jul 19, 2016 12:00
--- NOTE | 2016-07-19 12:02 | HHI.GIFU ---
Subjective Remarks Patient is resting in bed, wants to go home, asking about diet. He wishes to have outpatient evaluation for the anemia. (Karen Bello) Objective Vitals I&O Vital Signs Date Time Temp Pulse Resp B/P Pulse Ox O2 Delivery O2 Flow Rate FiO2 07/19/16 08:01 96 Nasal Cannula 4.00 07/19/16 07:21 97.2 81 16 148/91 97 07/19/16 05:33 97.1 80 18 163/83 93 07/19/16 01:10 98.1 75 18 144/69 92 07/18/16 22:58 98 Nasal Cannula 4.00 07/18/16 20:05 98.1 73 18 135/99 93 07/18/16 19:22 80 18 121/69 100 Nasal Cannula 4 07/18/16 19:00 98.2 75 18 133/78 97 Nasal Cannula 4 07/18/16 18:30 97.9 17 130/75 98 Nasal Cannula 4 07/18/16 18:15 97.7 79 18 130/80 97 Nasal Cannula 4 07/18/16 18:10 97.7 75 16 133/60 99 Nasal Cannula 4 07/18/16 18:05 97.8 75 17 130/70 98 Nasal Cannula 4 07/18/16 18:00 98.0 76 16 133/77 98 Nasal Cannula 4 07/18/16 17:45 98.0 72 16 130/70 98 Nasal Cannula 07/18/16 17:15 98.0 68 15 128/72 99 Nasal Cannula 07/18/16 16:15 98.0 71 15 127/78 97 Nasal Cannula 4 07/18/16 16:00 98.2 80 15 116/71 98 Nasal Cannula 4 07/18/16 15:45 98.0 82 16 136/63 99 Nasal Cannula 4 07/18/16 15:30 97.9 70 16 128/72 98 Nasal Cannula 4 07/18/16 15:15 98.0 79 15 136/63 97 Nasal Cannula 4 07/18/16 15:10 98.3 81 15 136/80 96 Nasal Cannula 07/18/16 15:05 98.6 75 16 136/81 97 Nasal Cannula 4 07/18/16 14:52 98.4 78 16 128/76 99 Nasal Cannula 4 07/18/16 13:54 80 16 134/97 97 Nasal Cannula 4 07/18/16 13:50 95 Nasal Cannula 4.00 07/18/16 13:03 18 07/18/16 12:52 78 16 132/79 100 Nasal Cannula 4 07/18/16 12:51 100 Nasal Cannula 4 I/O 07/18/16 07/18/16 07/18/16 07/19/16 07/19/16 07/19/16 07:00 15:00 23:00 07:00 15:00 23:00 Intake Total 240 ml Output Total 200 ml 900 ml Balance 40 ml -900 ml Intake Oral 240 ml Output Urine Total 200 ml 900 ml Laboratory Laboratory Tests Test 07/18/16 07/18/16 07/18/16 07/19/16 12:45 12:46 14:27 05:55 Prothrombin Time 11.4 Prothromb Time International 1.0 Ratio Sodium Level 133 134 Potassium Level 3.8 3.8 Chloride Level 96 98 Carbon Dioxide Level 30.8 28.8 Anion Gap 6 7 Blood Urea Nitrogen 8 7 Creatinine 0.83 0.68 Estimat Glomerular Filtration 90 114 Rate Random Glucose 125 90 Calcium Level 8.5 8.3 Total Bilirubin 0.4 Aspartate Amino Transf 9 (AST/SGOT) Alanine Aminotransferase 11 (ALT/SGPT) Alkaline Phosphatase 92 Troponin I LESS THAN 0.02 Total Protein 7.3 Albumin 2.9 Blood Type O POSITIVE Antibody Screen NEGATIVE Crossmatch Leukocyte-Reduced Red Blood Cells Blood Bank [facility] White Blood Count 5.4 5.4 Red Blood Count 3.76 4.28 Hemoglobin 7.8 9.7 Hematocrit 26.5 30.8 Mean Corpuscular Volume 70.4 71.9 Mean Corpuscular Hemoglobin 20.8 22.7 Mean Corpuscular Hemoglobin 29.5 31.6 Concent Red Cell Distribution Width 20.3 20.6 Platelet Count 284 249 Mean Platelet Volume 7.3 7.1 Neutrophils (%) (Auto) 71.6 70.5 Lymphocytes (%) (Auto) 15.9 15.0 Monocytes (%) (Auto) 10.6 11.9 Eosinophils (%) (Auto) 1.7 2.5 Basophils (%) (Auto) 0.2 0.1 Neutrophils # (Auto) 3.9 3.8 Lymphocytes # (Auto) 0.9 0.8 Monocytes # (Auto) 0.6 0.6 Eosinophils # (Auto) 0.1 0.1 Basophils # (Auto) 0.0 0.0 CBC Comment AUTO DIFF AUTO DIFF Differential Comment AUTO DIFF AUTO DIFF CONFIRMED CONFIRMED Platelet Estimate NORMAL NORMAL Platelet Morphology Comment NORMAL NORMAL Ovalocytes 1+ 1+ Keratocytes 1+ OCC Urine Color YELLOW Urine Turbidity CLOUDY Urine pH 8.0 Urine Specific [place] 1.012 Urine Protein 30 Urine Glucose (UA) NEG Urine Ketones NEG Urine Occult Blood NEG Urine Nitrite NEG Urine Bilirubin NEG Urine Urobilinogen LESS THAN 2.0 Urine Leukocyte Esterase NEG Urine RBC 2 Urine WBC 17 Urine Amorphous Sediment RARE Urine Bacteria RARE Microscopic Urinalysis Comment CULTURE INDICATED Date/Time Procedure Status Source Growth 07/18/16 14:27 Urine Culture Received Urine Clean Catch Pending Imaging Last Impressions Chest X-Ray 07/18/16 0000 Signed Impressions: Service Date/Time: Monday, July 18, 2016 00:00 - CONCLUSION: 1. Chronic scarring at the lung bases left greater than right. 2. No evidence of pneumonia or pulmonary edema. Conor Lunsford MD Physical Exam HEENT: Pupils round and reactive to light; normocephalic; atraumatic; no jaundice. Throat is clear. NECK: Neck is supple, no JVD, no lymphadenopathy. CHEST: Chest is clear to auscultation and percussion. CARDIAC: Regular rate and rhythm with no murmur gallop or rubs. ABDOMEN: Soft, nondistended, nontender; no hepatosplenomegaly; bowel sounds are present in all four quadrants. EXTREMITIES: No clubbing, cyanosis, or edema. SKIN: Normal; no rash; no jaundice. COLLEGE COUNSELOR: No focal deficits; alert and oriented times three. (Karen BelloP) Assessment and Plan Plan - Severe anemia- Patient and would like any evaluation to be done as an outpatient. Patient is here upon Dr. Manzano instruction for 2 units of blood transfusion due to OP labs of 7.7. Patient was seen by our GI services back in May of 2016 for hgb of 3.9 and was refusing EGD/colonoscopy at the time, eventually he agreed to having EGD, however, he was discharged before having this done. Patient denies any active bleeding, denies nausea, vomiting, abdomen pain, or hematochezia. He has family history of colon cancer, his sister had it. He reports black stools but he is on iron supplement. wt loss of over 30 ibs within the past 2 years. he is on steroids and occasional use of NSAIDs, on alcohol, CEA back in May was normal. PPI, patient is agreeing this time - Wt loss/poor appetite- wt loss of over 30 ibs within the past 2 years. - family history of colon cancer- sister - Large aortic aneurysm- Patient had it for a long time, not surgical candidate , awaiting t vascular surgeon clearance, CTA ordered but not done yet, however, patient would like to go home. - history of COPD, CAD, HTN per primary Plan: - Advance diet - Patient and would like to go home and have any necessary procedures done as an OP - EGD/colonoscopy as an OP, he remains high risk for any procedures, large aorta 6.6 cm - Ok from GI stand point to go home - F/u with GI in 2 weeks - Monitor hh routinely - Transfuse as needed - Supportive care - Patient seen and examined by Dr. Jose and myself and this note is written on his behalf. (Karen Bello) Physician Comments Seen and examined with [facility], no active bleeding. GI condon on hold due to large aortic aneurysm. Anesthesia needing cardiac clearance prior to any gi condon. Discussed this with pt. and . If dced home please schedule fu with gi after cardiac clearance. (Alma Jose MD) Karen Bello Jul 19, 2016 12:02 Alma Jose MD Jul 19, 2016 13:08
[2016-07-19] MEDS ORDERED: REMOVE OLD NICODERM (NICOTINE) PATCH TD SCH (21:00)
--- NOTE | 2016-07-19 22:52 | EKG ---
Date Performed: 07/18/2016 Time Performed: 14:04:08 PTAGE: 75 years EKG: Sinus rhythm WITH OCCASIONAL SUPRAVENTRICULAR PREMATURE COMPLEXES POSSIBLE LEFT ATRIAL ENLARGEMENT INCOMPLETE RIG HT BUNDLE BRANCH BLOCK LEFT ANTERIOR FASCICULAR BLOCK SEPTAL MYOCARDIAL INFARCTION ABNORMAL ECG PREVIOUS TRACING : 06/02/2016 01.26 Compared to the previous tracing, previously had ST/T wave changes laterally DOCTOR: Philip Roberts Interpretating Date/Time 07/19/2016 22:51:08
[2016-08-18] MEDS ORDERED: DIAZ5TAB PO (09:10)
[2016-08-18] MEDS ORDERED: TEMA7.5C PO (09:10)
== END 2016-07-19 13:43 | disposition home or self-care (01) | DRG 812 ==
LOC: NEPD 11:24 → NEDA 14:09 → NEPGCP 19:59 → OBSVTOIN 20:24
PROVIDERS: ADMIT Family Medicine; ATTEND Family Medicine
PROC: 30253N1 (ICD-10-PCS; principal; 2016-07-18)
DX: D62 Acute posthemorrhagic anemia (principal); J96.11 Chronic respiratory failure with hypoxia; I50.9 Heart failure, unspecified; I11.0 Hypertensive heart disease with heart failure; E87.1 Hypo-osmolality and hyponatremia; I25.810 Atherosclerosis of coronary artery bypass graft(s) without angina pectoris; K92.1 Melena; Z99.81 Dependence on supplemental oxygen; J44.9 Chronic obstructive pulmonary disease, unspecified; I71.4 Abdominal aortic aneurysm, without rupture; E78.5 Hyperlipidemia, unspecified; F17.210 Nicotine dependence, cigarettes, uncomplicated; Z95.1 Presence of aortocoronary bypass graft; M10.9 Gout, unspecified; I25.2 Old myocardial infarction; Z80.0 Family history of malignant neoplasm of digestive organs
CPT/HCPCS: 36430; 71010; 80048; 80053; 81001; 84484; 85025; 85610; 86850; 86900; 86901; 86920; 87086; 93005; 94640; 94664; 96365; 96376; C9113; J7512; J7613; P9016

== ENCOUNTER → 2016-08-18 | Outpatient (CLI) | payer MEDICARE ==
[~2016-08-18] VITALS: Ht 182.9 cm; Wt 59.5 kg
[~2016-08-18] MED LIST changes: +DIAZ5TAB PO; -FLUT1INH INH; +INSULIN HUMAN REGULAR 1,000 UNITS/10 ML VIAL SQ PRN; +LACTATED RINGER'S 1000 ML IV SCH; -LEVA750T PO; +LEVO750T3 PO; +METOPROLOL TARTRATE 25 MG TAB PO PRN; +PERI8.6T PO; -PRED10 PO; +PROPOFOL 200 MG/20 ML AMP IV ONE; -ROSU10 PO; +SODIUM CHLORID 0.9% 500 ML IV SCH; -SPIRCAP INH; +TEMA7.5C PO
[2016-08-18 09:00] VITALS: BP 141/82; PULSE 71; RESP 18; TEMP 97.9; O2SAT 99
--- NOTE | 2016-08-18 11:53 | GIPROC ---
[facility] [address] [facility]. [facility], [address] EGD PROCEDURE REPORT EXAM DATE: 08/18/2016 PATIENT NAME: Napoleon Quiroga MR #: [id number] BIRTHDATE: 1940 ATTENDING: Rodney Llanes MD ORDER #: [id number] [employer] SPECIALIST: Gualberto Lara Pat STATUS: outpatient INDICATIONS: The patient is a 75 yr old male here for an EGD due to iron deficiency anemia and heme positive stool PROCEDURE PERFORMED: EGD w/ ablation MEDICATIONS: None and Per Anesthesia. TOPICAL ANESTHETIC: none CONSENT: The patient understands the risks and benefits of the procedure and understands that these risks include, but are not limited to: sedation, allergic reaction, infection, perforation and/or bleeding. Alternative means of evaluation and treatment include, among others: physical exam, x-rays, and/or surgical intervention. The patient elects to proceed with this endoscopic procedure. medical equipment was checked for proper function. Hand hygiene and appropriate measures for infection prevention was taken. After the risks, benefits and alternatives of the procedure were thoroughly explained, Informed consent was verified, confirmed and timeout was successfully executed by the treatment team. The patient was anesthetized with topical anesthesia and the Pentax [id number] endoscope was introduced through the mouth and advanced to the third portion of the duodenum. Retroflexion was performed and was normal The gastroscope was then slowly withdrawn and removed. ESOPHAGUS: The mucosa of the esophagus appeared normal. STOMACH: A round arteriovenous malformation measuring 4mm in size was found in the gastric body and on the greater curve of the stomach. Argon plasma coagulation was applied to the site. With good treatment effect. ADVERSE EVENTS: There were no complications. IMPRESSIONS: 1. The esophagus appeared normal 2. Arteriovenous malformation measuring 4mm in size was found in the gastric body and on the greater curve of the stomach; Argon plasma coagulation was applied to the site; with good treatment effect 3. Retroflexion was performed and was normal RECOMMENDATIONS: 1. Hematocrit 2. Avoid NSAIDS PATIENT CONDITION: stable DISPOSITION: Home REPEAT EXAM: NONE Rodney Llanes MD eSigned: Rodney Llanes MD 08/18/2016 11:52 AM cc: Alex Rosales M.D. CPT CODES: 20862 Upper gastrointestinal endoscopy including esophagus, stomach, and either the duodenum and/or jejunum as appropriate; with ablation of tumor(s), polyp(s), or other lesion(s) not amenable to removal by hot biopsy forceps, bipolar cautery or snare technique ICD CODES: Q27.33 Arteriovenous malformation of digestive system vessel K92.1 Melena D50.9 Iron deficiency anemia,unspecified The ICD and CPT codes recommended by this software are interpretations from the data that the clinical staff has captured with the software. The verification of the translation of this report to the ICD and CPT codes and modifiers is the sole responsibility of the health care institution and practicing physician where this report was generated. [employer] will not be held responsible for the validity of the ICD and CPT codes included on this report. [employer] assumes no liability for data contained or not contained herein. CPT is a registered trademark of the [employer]. PATIENT NAME: Napoleon Quiroga MR#: [id number]
--- NOTE | 2016-08-18 11:59 | GIPROC ---
[facility] [address] [facility]. [facility], [address] COLONOSCOPY PROCEDURE REPORT EXAM DATE: 08/18/2016 PATIENT NAME: Napoleon Quiroga MR #: [id number] BIRTHDATE: 1940 ENDOSCOPIST: Rodney Llanes MD ORDER #: [id number] DOCTOR OF DENTAL SURGERY: Mee Villa and Lyudmila Lara STATUS: outpatient INDICATIONS: The patient is a 75 yr old male here for a colonoscopy due to iron deficiency anemia and heme-positive stool PROCEDURE PERFORMED: Colonoscopy, incomplete MEDICATIONS: None and Per Anesthesia. PREP QUALITY: inadequate ESTIMATED BLOOD LOSS: None CONSENT: The patient understands the risks and benefits of the procedure and understands that these risks include, but are not limited to: sedation, allergic reaction, infection, perforation and/or bleeding. Alternative means of evaluation and treatment include, among others: physical exam, x-rays, and/or surgical intervention. The patient elects to proceed with this endoscopic procedure. medical equipment was checked for proper function. Hand hygiene and appropriate measures for infection prevention was taken. After the risks, benefits and alternatives of the procedure were thoroughly explained, Informed consent was verified, confirmed and timeout was successfully executed by the treatment team. A digital exam was performed and revealed no abnormalities of the rectum The Pentax [id number] endoscope was introduced through the anus and advanced to the mid transverse colon. The instrument was then slowly withdrawn as the colon was fully examined. Unable to pass colonoscope further due to redundant colon and large AAA. Prep also poor with lots of brown opaque liquid stool and some solid stool. COLON FINDINGS: The colonic mucosa appeared normal. Retroflexion was not performed The scope was then completely withdrawn from the patient and the procedure terminated. ADVERSE EVENTS: There were no complications. IMPRESSIONS: 1. The colonic mucosa appeared normal 2. Retroflexion was not performed 3. Was performed 4. Revealed no abnormalities of the rectum RECOMMENDATIONS: Discuss ACBE or CT Colonography RECALL: NONE Rodney Llanes MD eSigned: Rodney Llanes MD 08/18/2016 11:58 AM cc: Alex Rosales M.D. CPT CODES: 27143 Colonoscopy, flexible, proximal to splenic flexure; diagnostic, with or without collection of specimen(s) by brushing or washing, with or without colon decompression (separate procedure) ICD CODES: R19.5 Other fecal abnormalities K92.1 Melena D50.9 Iron deficiency anemia,unspecified The ICD and CPT codes recommended by this software are interpretations from the data that the clinical staff has captured with the software. The verification of the translation of this report to the ICD and CPT codes and modifiers is the sole responsibility of the health care institution and practicing physician where this report was generated. [employer] will not be held responsible for the validity of the ICD and CPT codes included on this report. [employer] assumes no liability for data contained or not contained herein. CPT is a registered trademark of the [employer]. PATIENT NAME: Napoleon Quiroga MR#: [id number]
[2016-08-18 12:01] VITALS: BP 142/89; PULSE 77; RESP 18; O2SAT 96
== END ==
LOC: HEND 08:18
PROVIDERS: ATTEND Internal Medicine Gastroenterology
DX: Q27.33 Arteriovenous malformation of digestive system vessel (principal); K92.1 Melena; D50.9 Iron deficiency anemia, unspecified; Z91.19 Patient's noncompliance with other medical treatment and regimen
CPT/HCPCS: 00740; 43270; 45378; J7120

== ENCOUNTER 2016-11-27 17:04 | Observation (INO) | payer MEDICARE ==
[~2016-11-27] VITALS: Ht 182.9 cm; Wt 55.0 kg
[~2016-11-27 17:04] MED LIST changes: -INSULIN HUMAN REGULAR 1,000 UNITS/10 ML VIAL SQ PRN; -LACTATED RINGER'S 1000 ML IV SCH; -LEVO750T3 PO; -METOPROLOL TARTRATE 25 MG TAB PO PRN; -PERI8.6T PO; -PROPOFOL 200 MG/20 ML AMP IV ONE; -SODIUM CHLORID 0.9% 500 ML IV SCH
[2016-11-27 17:06] VITALS: BP 119/80; PULSE 86; RESP 18; TEMP 97.7; O2SAT 97
[2016-11-27] MEDS ORDERED: SODIUM CHLOR 0.9% 1000 ML INJ 1,000 ML IV SCH (18:00)
[2016-11-27 18:02] VITALS: BP 126/85; PULSE 77; RESP 16; O2SAT 100
[2016-11-27 18:23] VITALS: RESP 18; O2SAT 97
[2016-11-27 18:44] LABS: APTT (PATIENT) 27.7 SEC (24.3-30.1)
[2016-11-27 18:50] LABS: ANION GAP 7 MEQ/L (5-15); AST (GOT) 11 U/L (15-37); BICARBONATE 31.1 MEQ/L (21.0-32.0); BLOOD UREA NITROGEN 26 MG/DL (7-18); CHLORIDE 90 MEQ/L (98-107); GLOMERULAR FILTRATION RATE 79 ML/MIN (>89); POTASSIUM 4.4 MEQ/L (3.5-5.1); SODIUM (NA) 128 MEQ/L (136-145)
[2016-11-27 18:51] LABS: ALT (GPT) 15 U/L (12-78)
[2016-11-27 18:53] LABS: ALKALINE PHOSPHATASE 101 U/L (45-117); TOTAL BILIRUBIN ADULT 0.3 MG/DL (0.2-1.0)
--- NOTE | 2016-11-27 19:02 | PD ---
HPI Chief Complaint: GI Complaint Time Seen by Provider: 18:58 Travel History International Travel<30 days: No Contact w/Intl Traveler<30days: No Traveled to known affect area: No History of Present Illness HPI 76-year-old male that presents to the ED for evaluation of abdominal pain. Per patient she's been having 1 week of lower abdominal pain with generalized weakness. Per patient he had a bowel movementblood today. Patient has a history of GI bleed in the past. Patient has a chronic history of COPD and continues to smoke. Patient also apparently has an aneurysm on the abdomen that is supposed to be 6.[address] done this year. Per patient she's had a colonoscopy done this year with no acute disease. Patient reports that he called his doctors and they told to come here to get evaluated and possibly admitted. He denies any chest pain or shortness of breath other than his chronic shortness of breath. He is 6 oxygen at home. He has an allergy to penicillin. He has not taken anything for this. He states that he has diarrhea as well. No headache. No injury. Per patient and his discomfort is 7 out of 10. All the pain mainly is on the lower abdomen. PFSH Past Medical History Anemia: Yes Arthritis: Yes Heart Rhythm Problems: Yes Cancer: No Cardiovascular Problems: Yes (BLOCKAGE) High Cholesterol: Yes Congestive Heart Failure: Yes COPD: Yes Coronary Artery Disease: Yes Diabetes: No Diminished Hearing: No Endocrine: No GERD: Yes Genitourinary: No Hepatitis: No Hiatal Hernia: No Hypertension: Yes Immune Disorder: No Musculoskeletal: Yes (OSTEOARTHRITIS) Neurologic: No Psychiatric: No Respiratory: Yes (copd/ on 3L oxygen at home, ONLY 35% KANE LUNG FUNCTION) Myocardial Infarction: Yes Thyroid Disease: No Tetanus Vaccination: < 5 Years Past Surgical History Abdominal Surgery: Yes (INGUINAL HERNIA REPAIR X2 ) AICD: No Body Medical Devices: PENILE IMPLANT Cardiac Surgery: Yes (CABG X3) Coronary Artery Bypass Graft: Yes (CABG X 3 1995) Ear Surgery: No Endocrine Surgery: No Eye Surgery: Yes (CATARACTS) Genitourinary Surgery: No Gynecologic Surgery: No Joint Replacement: No Oral Surgery: Yes (TONSILLECTOMY) Pacemaker: No Thoracic Surgery: No Other Surgery: Yes (Sx r/t nosebleed, penile implant ) Social History Alcohol Use: No Tobacco Use: Yes (1ppd) Substance Use: No Allergies-Medications (Allergen,Severity, Reaction): Coded Allergies: Penicillin (Verified Allergy, Unknown, 11/27/16) Patient nor his daughter remember what reaction he had to PCN. Reported Meds & Prescriptions Reported Meds & Active Scripts Active Pantoprazole (Pantoprazole Sodium) 40 Mg Tab 40 Mg PO DAILY Reported Temazepam 7.5 Mg Cap 7.5 Mg PO HS PRN Diazepam 5 Mg Tab 5 Mg PO DAILY PRN Diltiazem CD 24 HR 300 Mg Caper 300 Mg PO DAILY Albuterol Neb (Albuterol Sulfate) 2.5 Mg/3 Ml Neb 2.5 Mg NEB QID NEB Review of Systems Except as stated in HPI: all other systems reviewed are Neg Physical Exam Narrative GENERAL: SKIN: Warm and dry. HEAD: Atraumatic. Normocephalic. EYES: Pupils equal and round. No scleral icterus. No injection or drainage. ENT: No nasal bleeding or discharge. Mucous membranes pink and moist. Tongue is midline. No uvula deviation. NECK: Trachea midline. No JVD. CARDIOVASCULAR: Regular rate and rhythm. No murmurs, S3, S4. RESPIRATORY: No accessory muscle use. Clear to auscultation. Breath sounds equal bilaterally. GASTROINTESTINAL: Abdomen soft, tender to palpation on the lower quadrants of the abdomen, nondistended. Hepatic and splenic margins not palpable. MUSCULOSKELETAL: Extremities without clubbing, cyanosis, or edema. No obvious deformities. Full range of motion of the upper and lower extremities bilaterally. 2+ pulses bilaterally. NEUROLOGICAL: Awake and alert. No obvious cranial nerve deficits. Motor grossly within normal limits. Five out of 5 muscle strength in the arms and legs. Normal speech. PSYCHIATRIC: Appropriate mood and affect; insight and judgment normal. Data Data Last Documented VS Vital Signs Date Time Temp Pulse Resp B/P Pulse Ox O2 Delivery O2 Flow Rate FiO2 11/27/16 19:20 86 18 126/85 95 Nasal Cannula 3 11/27/16 17:06 97.7 Orders Complete Blood Count With Diff (11/27/16 18:00) Comprehensive Metabolic Panel (11/27/16 18:00) Lipase (11/27/16 18:00) Lactic Acid (11/27/16 18:00) Prothrombin Time / Inr (Pt) (11/27/16 18:00) Act Partial Throm Time (Ptt) (11/27/16 18:00) Urinalysis - C+S If Indicated (11/27/16 18:00) Ct Abd/Pel W Iv Contrast(Rout) (11/27/16 18:00) Iv Access Insert/Monitor (11/27/16 18:00) Ecg Monitoring (11/27/16 18:00) Oximetry (11/27/16 18:00) Sodium Chlor 0.9% 1000 Ml Inj (Ns 1000 M (11/27/16 18:00) Iohexol 350 Inj (Omnipaque 350 Inj) (11/27/16 19:03) Chest, Single Ap (11/27/16 ) Admit Order (Ed Use Only) (11/27/16 20:37) Labs Laboratory Tests Test 11/27/16 11/27/16 18:20 19:15 White Blood Count 7.9 TH/MM3 Red Blood Count 3.91 MIL/MM3 Hemoglobin 9.6 GM/DL Hematocrit 29.9 % Mean Corpuscular Volume 76.6 FL Mean Corpuscular Hemoglobin 24.7 PG Mean Corpuscular Hemoglobin 32.2 % Concent Red Cell Distribution Width 17.7 % Platelet Count 266 TH/MM3 Mean Platelet Volume 7.7 FL Neutrophils (%) (Auto) 76.8 % Lymphocytes (%) (Auto) 11.0 % Monocytes (%) (Auto) 9.1 % Eosinophils (%) (Auto) 2.8 % Basophils (%) (Auto) 0.3 % Neutrophils # (Auto) 6.1 TH/MM3 Lymphocytes # (Auto) 0.9 TH/MM3 Monocytes # (Auto) 0.7 TH/MM3 Eosinophils # (Auto) 0.2 TH/MM3 Basophils # (Auto) 0.0 TH/MM3 CBC Comment DIFF FINAL Differential Comment Prothrombin Time 11.0 SEC Prothromb Time International 1.0 RATIO Ratio Activated Partial 27.7 SEC Thromboplast Time Sodium Level 128 MEQ/L Potassium Level 4.4 MEQ/L Chloride Level 90 MEQ/L Carbon Dioxide Level 31.1 MEQ/L Anion Gap 7 MEQ/L Blood Urea Nitrogen 26 MG/DL Creatinine 0.93 MG/DL Estimat Glomerular Filtration 79 ML/MIN Rate Random Glucose 132 MG/DL Lactic Acid Level 1.3 mmol/L Calcium Level 8.9 MG/DL Total Bilirubin 0.3 MG/DL Aspartate Amino Transf 11 U/L (AST/SGOT) Alanine Aminotransferase 15 U/L (ALT/SGPT) Alkaline Phosphatase 101 U/L Total Protein 7.6 GM/DL Albumin 3.1 GM/DL Lipase 191 U/L Urine Color YELLOW Urine Turbidity CLEAR Urine pH 7.0 Urine Specific [place] 1.020 Urine Protein 30 mg/dL Urine Glucose (UA) NEG mg/dL Urine Ketones NEG mg/dL Urine Occult Blood NEG Urine Nitrite NEG Urine Bilirubin NEG Urine Urobilinogen LESS THAN 2.0 MG/DL Urine Leukocyte Esterase NEG Urine RBC 1 /hpf Urine WBC 2 /hpf Urine Hyaline Casts 3 /lpf Microscopic Urinalysis Comment CULT NOT INDICATED MDM Medical Decision Making Medical Screen Exam Complete: Yes Emergency Medical Condition: Yes Medical Record Reviewed: Yes Interpretation(s) CBC & BMP Diagram 11/27/16 18:20 LFTs and lipase within normal limits. UA negative Last Impressions Abdomen/Pelvis CT 11/27/16 1800 Signed Impressions: Service Date/Time: Sunday, November 27, 2016 18:55 - CONCLUSION: 1. Large abdominal aortic aneurysm measuring up to 7.3 x 7.0 cm. This aneurysm has enlarged since the prior study from May 2016 when it measured 6.9 x 6.8 cm. 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 2. Emphysema with 15 mm right lower lobe pulmonary nodule suspicious for pulmonary neoplasm. Marcello Escobar MD Chest X-Ray 11/27/16 0000 Signed Impressions: Service Date/Time: Sunday, November 27, 2016 19:25 - CONCLUSION: 1. Mild left lower lobe airspace consolidation and atelectasis at the right lung base. 2. Calcification of the aorta. Marcello Escobar MD Differential Diagnosis Diverticulitis versus GI bleed versus acute abdomen versus pancreatitis versus anemia versus obstruction versus generalized weakness Narrative Course 76-year-old male that presents to the ED for evaluation of abdominal pain and possible GI bleed. Patient was properly examined and was found to have signs and symptoms concerning for GI bleed. Hemoccult was done and was positive. Labs and imaging ordered. Labs and imaging show no sign of acute disease that we can tell but the aneurysm sits to have enlarged but is stable. Patient was found to have possible neoplasm as well as consolidation on the left lung which could be pneumonia. The case was discussed with my attending Dr. Infante who went in and evaluated the patient with me. She recommends admission for oxygen monitoring of the H&H as well as with intractable abdominal pain. Patient is well aware that he has a AAA that is unfortunately not surgical. He says that he's had this for 20 years and we have documented evaluations by multiple vascular surgeons that state that patient unfortunately is not a good candidate for repair. Patient is DNR. VIVIEN reynoso and Dr Huang agrees to admission. [facility] Point of Care Internal Pos. & Neg. Controls: Passed Fecal Specimen Occult Blood: Positive Diagnosis Primary Impression: GI bleed Qualified Code: K92.2 - Gastrointestinal hemorrhage, unspecified gastrointestinal hemorrhage type Additional Impressions: Lung consolidation Intractable abdominal pain Abdominal aortic aneurysm (AAA), not a candidate for repair Admitting Information Admitting Physician Requests: Lewis Calles Nov 27, 2016 19:02
[2016-11-27] MEDS ORDERED: IOHEXOL 350 MG/ML 10 ML VIAL (for RAD DIAG) IV ONE (19:03)
[2016-11-27 19:10] LABS: AUTOMATED NEUTROPHIL # 6.1 TH/MM3 (1.8-7.7); BASOPHIL % 0.3 % (0.0-2.0); EOSINOPHIL # 0.2 TH/MM3 (0-0.4); EOSINOPHIL % 2.8 % (0.0-4.0); HEMATOCRIT 29.9 % (39.0-51.0); HEMO FLAGS DIFF FINAL; LYMPHOCYTE # 0.9 TH/MM3 (1.0-4.8); MEAN CELL VOLUME 76.6 FL (80.0-100.0); MEAN CORPUSCULAR HEMOGLOBIN 24.7 PG (27.0-34.0); MEAN CORPUSCULAR HGB CONC 32.2 % (32.0-36.0); MONO % 9.1 % (0.0-8.0); NEUT % 76.8 % (16.0-70.0); PLATELET COUNT 266 TH/MM3 (150-450); RED BLOOD COUNT 3.91 MIL/MM3 (4.50-5.90); RED CELL DISTRIBUTION WIDTH 17.7 % (11.6-17.2); WHITE BLOOD COUNT 7.9 TH/MM3 (4.0-11.0)
[2016-11-27 19:20] VITALS: BP 126/85; PULSE 86; RESP 18; O2SAT 95
--- NOTE | 2016-11-27 19:30 | RADRPT ---
EXAM DATE/TIME: 11/27/2016 18:55 [facility] COMPARISON: CTA THORACIC ABDOMINAL AORTA W 3D RECON, June 01, 2016, 19:18. INDICATIONS : Diffuse abdominal pain with weakness. History of GI bleed. IV CONTRAST: 71 cc Omnipaque 350 (iohexol) IV ORAL CONTRAST: No oral contrast ingested. RADIATION DOSE: 8.66 CTDIvol (mGy) MEDICAL HISTORY : Cardiovascular disease. Chronic obstructive pulmonary disease. Hernia, inguinal.Hypertension. SURGICAL HISTORY : CABG Inguinal hernia repair.Penile implant. ENCOUNTER: Initial ACUITY: 1 day PAIN SCALE: 6/10 LOCATION: Bilateral abdomen TECHNIQUE: Volumetric scanning of the abdomen and pelvis was performed. Using automated exposure control and ad justment of the mA and/or kV according to patient size, radiation dose was kept as low as reasonably achievable to obtain optimal diagnostic quality images. FINDINGS: LOWER LUNGS: There is atelectasis versus consolidation the left lower lobe. A 15 mm nodule is present in the right lower lobe. There are emphysematous changes at the lung bases. LIVER: Homogeneous density without lesion. There is no dilation of the biliary tree. No calcified gallston es. SPLEEN: Normal size without lesion. PANCREAS: Within normal limits. 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 Right kidney cont ains a 7 mm low-density lesion at the upper pole that is too small to characterize. There is no hydro nephrosis or stone. ADRENAL GLANDS: Right adrenal gland is within normal limits. Left adrenal gland is not definitively seen. VASCULAR: There is severe atherosclerotic disease with diffuse aneurysm of the entire abdominal aorta. In the i nfrarenal portion it measures up to 7.3 x 7.0 cm compared to 6.9 x 6.8 cm previously. It contains ecc entric neural thrombus and they hyperdense crescent is stable. No displaced calcifications are identi fied. There is no periaortic stranding identified. There is severe atherosclerotic disease including the iliac vessels. Left common iliac artery measures up to 2.9 cm and right common iliac artery also measures up to 2.9 cm and contains a stable short segment focal dissection. BOWEL/MESENTERY: No acute bowel abnormality is seen. There is no free air or free fluid. ABDOMINAL WALL: Within normal limits. RETROPERITONEUM: There is no lymphadenopathy. BLADDER: No wall thickening or mass. REPRODUCTIVE: Penile prosthesis is present. Fluid reservoir is present in the pelvis superior to the urinary bladde r. INGUINAL: There is no lymphadenopathy or hernia. MUSCULOSKELETAL: There are degenerative changes of the lumbar spine. CONCLUSION: 1. Large abdominal aortic aneurysm measuring up to 7.3 x 7.0 cm. This aneurysm has enlarged since the prior study from May 2016 when it measured 6.9 x 6.8 cm. The aneurysmal common iliac arteries a re stable in size as is the short segment focal dissection in the right common iliac artery. 2. Emphysema with 15 mm right lower lobe pulmonary nodule suspicious for pulmonary neoplasm. Marcello Escobar MD on November 27, 2016 at 19:18 Board Certified Radiologist. This report was verified electronically.
--- NOTE | 2016-11-27 19:49 | RADRPT ---
EXAM DATE/TIME: 11/27/2016 19:25 [facility] COMPARISON: CT ABDOMEN & PELVIS W CONTRAST, November 27, 2016, 18:55. CHEST SINGLE AP, July 18, 2016, 0:00. INDICATIONS : Short of breath. MEDICAL HISTORY : Chronic obstructive pulmonary disease. Congestive heart failure. SURGICAL HISTORY : CABG. ENCOUNTER: Initial ACUITY: 3 days PAIN SCORE: 0/10 LOCATION: Bilateral chest FINDINGS: Portable AP view of the chest demonstrates a normal-sized cardiac silhouette with calcification of th e aorta. Patient is post median sternotomy. Multiple clips overlie the mediastinum. Multiple EKG line s overlie the patient. Lungs are underinflated. There are airspace opacities at both lung bases, left greater than right. No pleural effusion or pneumothorax is identified. Bones and soft tissues demons trate no acute finding. CONCLUSION: 1. Mild left lower lobe airspace consolidation and atelectasis at the right lung base. 2. Calcification of the aorta. Marcello Escobar MD on November 27, 2016 at 19:46 Board Certified Radiologist. This report was verified electronically.
[2016-11-27 20:06] LABS: BLOOD, URINE NEG (NEG); COMMENT (UR) CULT NOT INDICATED; CULTURE IF INDICATED CULT NOT INDICATED; GLUCOSE,URINE NEG (NEG); HYALINE CAST, URINE 3 /lpf (RARE); KETONE, URINE NEG (NEG); NITRITE,URINE NEG (NEG); URINE COLOR YELLOW (YELLW/STRAW)
[2016-11-27] MEDS ORDERED: SODIUM CHLORIDE 0.9% FLUSH 10 ML FLUSH IV FLUSH PRN (21:45)
[2016-11-27] MEDS ORDERED: NALOXONE HCL 0.4 MG/ML AMP IV PRN (21:45)
[2016-11-27] MEDS: MORPHINE SULFATE 4 MG/ML INJ IV PUSH PRN (23:00)
[2016-11-27 23:15] LABS: HEMATOCRIT 29.5 % (39.0-51.0)
[2016-11-27 23:16] LABS: REVIEW FLAG FINAL
[2016-11-27] MEDS: RESP: ALBUTEROL 2.5 MG/IPRATROPIUM 0.5 MG NEB (PRN) NEB (23:16)
[2016-11-27 23:26] VITALS: BP 159/88; PULSE 94; RESP 18; TEMP 99; O2SAT 96
[2016-11-27 23:30] VITALS: O2SAT 96
[2016-11-27 23:48] LABS: CREATINE KINASE 37 U/L (39-308)
[2016-11-28] VITALS (8 sets, daily range): BP systolic 128–149; BP diastolic 75–92; PULSE 81–100; RESP 17–22; TEMP 97.8–99; O2SAT 91–100
--- NOTE | 2016-11-28 03:43 | HHI.HP ---
HPI Service [facility] Primary Care Physician Alex Rosales MD Admission Diagnosis intractable abdominal pain, GI bleed, AAA (non surgical) Diagnoses: Chief Complaint: abdominal pain Travel History International Travel<30 Days: No Contact w/Intl Traveler <30 Da: No Traveled to Known Affected Are: No History of Present Illness Written by Sita Henley, acting as scribe for Dr. Huang on 11/28/16 at 03: 34. 75-year-old male with history of COPD, chronic respiratory failure on 3 L nasal cannula, CAD, CHF, CABG, large non-operable AAA, anemia on iron supplementation , HTN, HLD, gout. Presents to the ER today because abdominal pain. Patient reports, "my stomach was hurting really really bad." Patient reports he has had abdominal pain for the past week which has gotten worse over the past 3 days. Patient reports pain in the generalized abdominal area. Patient also reports he was constipated so he took 4 Senokot at home with no relief then took an enema and start having black stool. Patient denies BRBPR. Patient reports last had colonoscopy with cauterization was [address] Crews. Patient also reports he has been short of breath after having to go to the bathroom. Patient has a productive cough. Patient reports he is able to produce phlegm after his nebulizer treatments. Patient is unsure of the color. Patient endorses chills when he gets into bed at night which has been going on for, "a long time." Also complaints of chronic back, neck and shoulder pain- per patient this is at his baseline. Patient has a large AAA 7.3cm x 7.0cm- which per patient is not operable. Patient states. "I don't want to do anything about it. If it's my time, its my time." Patient also wishes to be a DNR, "if my heart stops just let me go." Denies fever, nausea, vomiting or chest pain. Review of Systems Except as stated in HPI: all other systems reviewed are Neg Past Family Social History Past Medical History COPD chronic respiratory failure on 3 L nasal cannula CAD CHF AAA anemia HTN HLD gout Past Surgical History Hernia repairs x2 CABG x3 vessel Penile implant Surgical intervention for epistaxis Reported Medications Pantoprazole (Pantoprazole Sodium) 40 Mg Tab 40 Mg PO DAILY Temazepam 7.5 Mg Cap 7.5 Mg PO HS PRN Diazepam 5 Mg Tab 5 Mg PO DAILY PRN Diltiazem CD 24 HR 300 Mg Caper 300 Mg PO DAILY Albuterol Neb (Albuterol Sulfate) 2.5 Mg/3 Ml Neb 2.5 Mg NEB QID NEB Allergies: Coded Allergies: Penicillin (Verified Allergy, Unknown, 11/27/16) Patient nor his daughter remember what reaction he had to PCN. Active Ordered Medications Current Medications Medications (Trade) Dose Ordered Sig/Hank Route Start Time Stop Time Status Last Admin (NS Flush) 2 ml UNSCH PRN IV FLUSH 11/27/16 21:45 (NS Flush) 2 ml BID IV FLUSH 11/28/16 09:00 (Narcan Inj) 0.4 mg UNSCH PRN IV 11/27/16 21:45 (Morphine Inj) 2 mg Q4HR PRN IV PUSH 11/27/16 23:00 11/27/16 23:00 (Protonix Inj) 40 mg DAILY IV PUSH 11/27/16 23:10 11/28/16 00:00 (Pneumovax-23 Inj) 25 mcg ONCE ONCE IM 11/29/16 10:00 11/29/16 10:01 Family History Mother 96 still alive, healthy Father with heart disease and aneurysm, age 70 Brother secondary to ND Social History Smokes tobacco since he was a teenager, continues to smoke 1 PPD Denies any alcohol or drug use at this time- reports he used to drink heavily , lives with his Ambulates independently without cane or walker Physical Exam Vital Signs Vital Signs Date Time Temp Pulse Resp B/P Pulse Ox O2 Delivery O2 Flow Rate FiO2 11/27/16 23:30 96 Nasal Cannula 4.00 11/27/16 23:26 99.0 94 18 159/88 96 11/27/16 19:20 86 18 126/85 95 Nasal Cannula 3 11/27/16 18:23 18 97 Nasal Cannula 3 11/27/16 18:02 77 16 126/85 100 Nasal Cannula 3 11/27/16 18:01 76 16 100 11/27/16 17:06 97.7 86 18 119/80 97 2 Physical Exam GENERAL: This is a thin, well-developed patient, in no apparent distress. SKIN: No rashes, ecchymoses or lesions. Cool and dry. HEAD: Atraumatic. Normocephalic. No temporal or scalp tenderness. EYES: Extraocular motions intact. No scleral icterus. No injection or drainage. CARDIOVASCULAR: Regular rate and rhythm without murmurs, gallops, or rubs. RESPIRATORY: Clear to auscultation. Breath sounds equal bilaterally. No wheezes , rales, or rhonchi. GASTROINTESTINAL: palpable pulsation and bruit noted. Abdomen soft, non-tender, nondistended. No hepato-splenomegaly, or palpable masses. No guarding. MUSCULOSKELETAL: Extremities without clubbing, cyanosis, or edema. No joint tenderness, effusion, or edema noted. No calf tenderness. Negative Homans sign bilaterally. NEUROLOGICAL: Awake and alert. No focal deficits noted. Motor and sensory grossly within normal limits. Five out of 5 muscle strength in all muscle groups. Normal speech. Laboratory Laboratory Tests Test 11/27/16 11/27/16 11/27/16 18:20 19:15 22:56 White Blood Count 7.9 Red Blood Count 3.91 Hemoglobin 9.6 9.5 Hematocrit 29.9 29.5 Mean Corpuscular Volume 76.6 Mean Corpuscular Hemoglobin 24.7 Mean Corpuscular Hemoglobin 32.2 Concent Red Cell Distribution Width 17.7 Platelet Count 266 Mean Platelet Volume 7.7 Neutrophils (%) (Auto) 76.8 Lymphocytes (%) (Auto) 11.0 Monocytes (%) (Auto) 9.1 Eosinophils (%) (Auto) 2.8 Basophils (%) (Auto) 0.3 Neutrophils # (Auto) 6.1 Lymphocytes # (Auto) 0.9 Monocytes # (Auto) 0.7 Eosinophils # (Auto) 0.2 Basophils # (Auto) 0.0 CBC Comment DIFF FINAL Differential Comment Prothrombin Time 11.0 Prothromb Time International 1.0 Ratio Activated Partial 27.7 Thromboplast Time Sodium Level 128 Potassium Level 4.4 Chloride Level 90 Carbon Dioxide Level 31.1 Anion Gap 7 Blood Urea Nitrogen 26 Creatinine 0.93 Estimat Glomerular Filtration 79 Rate Random Glucose 132 Lactic Acid Level 1.3 Calcium Level 8.9 Total Bilirubin 0.3 Aspartate Amino Transf 11 (AST/SGOT) Alanine Aminotransferase 15 (ALT/SGPT) Alkaline Phosphatase 101 Total Protein 7.6 Albumin 3.1 Lipase 191 Urine Color YELLOW Urine Turbidity CLEAR Urine pH 7.0 Urine Specific [place] 1.020 Urine Protein 30 Urine Glucose (UA) NEG Urine Ketones NEG Urine Occult Blood NEG Urine Nitrite NEG Urine Bilirubin NEG Urine Urobilinogen LESS THAN 2.0 Urine Leukocyte Esterase NEG Urine RBC 1 Urine WBC 2 Urine Hyaline Casts 3 Microscopic Urinalysis Comment CULT NOT INDICATED Total Creatine Kinase 37 Troponin I LESS THAN 0.02 Blood Type O POSITIVE Antibody Screen NEGATIVE Result Diagram: 11/27/16 2256 11/27/16 1820 Imaging Last Impressions Abdomen/Pelvis CT 11/27/16 1800 Signed Impressions: Service Date/Time: Sunday, November 27, 2016 18:55 - CONCLUSION: 1. Large abdominal aortic aneurysm measuring up to 7.3 x 7.0 cm. This aneurysm has enlarged since the prior study from May 2016 when it measured 6.9 x 6.8 cm. 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 2. Emphysema with 15 mm right lower lobe pulmonary nodule suspicious for pulmonary neoplasm. Marcello Escobar MD Chest X-Ray 11/27/16 0000 Signed Impressions: Service Date/Time: Sunday, November 27, 2016 19:25 - CONCLUSION: 1. Mild left lower lobe airspace consolidation and atelectasis at the right lung base. 2. Calcification of the aorta. Marcello Escobar MD Assessment and Plan Problem List: (1) Abdominal pain ICD Code: R10.9 Status: Acute (2) Abdominal aortic aneurysm (AAA), not a candidate for repair ICD Code: I71.4 Status: Chronic (3) COPD (chronic obstructive pulmonary disease) ICD Code: J44.9 Status: Chronic Assessment and Plan abdominal pain AAA- non-operable Patient does not want any further evaluation or treatment for AAA CT abdomen and pelvis reviewed and reveals 1. Large abdominal aortic aneurysm measuring up to 7.3 x 7.0 cm. This aneurysm has enlarged since the prior study from May 2016 when it measured 6.9 x 6.8 cm. 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 2. Emphysema with 15 mm right lower lobe pulmonary nodule suspicious for pulmonary neoplasm. Morphine IV as needed for pain possible GI bleed black stools on iron supplementation occult stool ordered Consult GI- Patient known to Dr. Llanes PNA CXR reviewed and reveals 1. Mild left lower lobe airspace consolidation and atelectasis at the right lung base. 2. Calcification of the aorta. Start Levaquin Pulmonary nodular CT abdomen and pelvis 1. Large abdominal aortic aneurysm measuring up to 7.3 x 7.0 cm. This aneurysm has enlarged since the prior study from May 2016 when it measured 6.9 x 6.8 cm. 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 2. Emphysema with 15 mm right lower lobe pulmonary nodule suspicious for pulmonary neoplasm. Discussed with patient he states he is already aware of this and follows with Dr. Ames- recommend outpatient follow up DVT propylaxsis SCDs CODE status DNR Discussed with ER provider, nursing and patient Sita Henley Nov 28, 2016 03:43
[2016-11-28] MEDS: MORPHINE SULFATE 4 MG/ML INJ IV PUSH PRN ×4 (03:50→21:33)
[2016-11-28] MEDS ORDERED: DIAZEPAM 5 MG TAB PO PRN (04:00)
[2016-11-28] MEDS ORDERED: TEMAZEPAM 7.5 MG CAP PO PRN (04:00)
[2016-11-28 05:47] LABS: AUTOMATED NEUTROPHIL # 12.5 TH/MM3 (1.8-7.7); BASOPHIL % 0.1 % (0.0-2.0); EOSINOPHIL # 0.1 TH/MM3 (0-0.4); EOSINOPHIL % 0.8 % (0.0-4.0); HEMATOCRIT 30.6 % (39.0-51.0); HEMO FLAGS DIFF FINAL; LYMPH % 5.3 % (9.0-44.0); LYMPHOCYTE # 0.8 TH/MM3 (1.0-4.8); MEAN CELL VOLUME 76.3 FL (80.0-100.0); MEAN CORPUSCULAR HEMOGLOBIN 24.3 PG (27.0-34.0); MEAN CORPUSCULAR HGB CONC 31.8 % (32.0-36.0); MONO % 7.4 % (0.0-8.0); NEUT % 86.4 % (16.0-70.0); PLATELET COUNT 267 TH/MM3 (150-450); RED BLOOD COUNT 4.02 MIL/MM3 (4.50-5.90); RED CELL DISTRIBUTION WIDTH 17.7 % (11.6-17.2); WHITE BLOOD COUNT 14.4 TH/MM3 (4.0-11.0)
[2016-11-28] MEDS: LEVOFLOXACIN 750 MG PREMIX INJ 150 ML IV SCH (06:07)
[2016-11-28 06:20] LABS: ANION GAP 7 MEQ/L (5-15); BICARBONATE 29.2 MEQ/L (21.0-32.0); BLOOD UREA NITROGEN 19 MG/DL (7-18); CHLORIDE 93 MEQ/L (98-107); GLOMERULAR FILTRATION RATE 93 ML/MIN (>89); POTASSIUM 4.3 MEQ/L (3.5-5.1); SODIUM (NA) 129 MEQ/L (136-145)
[2016-11-28 06:38] LABS: CREATINE KINASE 42 U/L (39-308)
[2016-11-28] MEDS: RESP: ALBUTEROL 2.5 MG/IPRATROPIUM 0.5 MG NEB (SCH) NEB ×3 (07:34→19:15)
[2016-11-28] MEDS: DILTIAZEM-CD 300 MG CAP ER PO SCH (08:40)
[2016-11-28] MEDS: PANTOPRAZOLE SODIUM 40 MG VIAL IV PUSH SCH ×2 (08:40)
[2016-11-28] MEDS: SODIUM CHLORIDE 0.9% FLUSH 10 ML FLUSH IV FLUSH SCH ×2 (08:40→21:00)
[2016-11-28] MEDS ORDERED: PANTOPRAZOLE SOD 40 MG DELAYED RELEASE TAB PO SCH (09:00)
[2016-11-28] MEDS: REMOVE OLD PATCH T-DERMAL SCH (09:30)
--- NOTE | 2016-11-28 09:54 | HHI.PR ---
Subjective Remarks Follow up for abdominal pain, pneumonia. The patient reports continue abdominal pain, worse in the epigastric area, described as intermittent cramping pains that wax and wane. He reports intermittent nausea but no vomiting. He has not had a BM since prior to arrival. Denies fevers/chills. Again discussed the patient's AAA, he continues to decline any further intervention. Objective Vitals Vital Signs Date Time Temp Pulse Resp B/P Pulse Ox O2 Delivery O2 Flow Rate FiO2 11/28/16 08:30 98.7 94 18 133/92 94 11/28/16 07:44 97 Nasal Cannula 3.50 11/28/16 04:13 99.0 96 18 141/92 91 11/28/16 04:07 16 11/27/16 23:30 96 Nasal Cannula 4.00 11/27/16 23:26 99.0 94 18 159/88 96 11/27/16 19:20 86 18 126/85 95 Nasal Cannula 3 11/27/16 18:23 18 97 Nasal Cannula 3 11/27/16 18:02 77 16 126/85 100 Nasal Cannula 3 11/27/16 18:01 76 16 100 11/27/16 17:06 97.7 86 18 119/80 97 2 I/O 11/27/16 11/27/16 11/27/16 11/28/16 11/28/16 11/28/16 07:00 15:00 23:00 07:00 15:00 23:00 Intake Total 1240 ml 500 ml Output Total 350 ml 200 ml Balance 890 ml 300 ml Intake Oral 240 ml 500 ml IV Total 1000 ml Output Urine Total 350 ml 200 ml # Voids 1 Result Diagram: 11/28/16 0541 11/28/16 0541 Imaging Last Impressions Abdomen/Pelvis CT 11/27/16 1800 Signed Impressions: Service Date/Time: Sunday, November 27, 2016 18:55 - CONCLUSION: 1. Large abdominal aortic aneurysm measuring up to 7.3 x 7.0 cm. This aneurysm has enlarged since the prior study from May 2016 when it measured 6.9 x 6.8 cm. 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 2. Emphysema with 15 mm right lower lobe pulmonary nodule suspicious for pulmonary neoplasm. Marcello Escobar MD Chest X-Ray 11/27/16 0000 Signed Impressions: Service Date/Time: Sunday, November 27, 2016 19:25 - CONCLUSION: 1. Mild left lower lobe airspace consolidation and atelectasis at the right lung base. 2. Calcification of the aorta. Marcello Escobar MD Objective Remarks GENERAL: Thin cachectic appearing male patient in [facility]. SKIN: Warm and dry. No rash. HEENT: Normocephalic. Atraumatic.Pupils equal and round. Mucous membranes pink and moist. NECK: Supple. Trachea midline. CARDIOVASCULAR: Regular rate and rhythm. S1, S2 noted. No murmur appreciated. RESPIRATORY: No accessory muscle use. Breath sounds diminished at bilateral bases with prolonged expiratory phase. No wheezing. GASTROINTESTINAL: Abdomen soft, non-tender, nondistended. Normoactive bowel sounds x4. +Pulsatile abdominal mass. MUSCULOSKELETAL: No obvious deformities. Extremities without clubbing, cyanosis , or edema. NEUROLOGICAL: Awake and alert. No obvious cranial nerve deficits. Motor grossly within normal limits. Normal speech. PSYCHIATRIC: Appropriate mood and affect; insight and judgment normal. Medications and IVs Current Medications Medications (Trade) Dose Ordered Sig/Hank Route Start Time Stop Time Status Last Admin (NS Flush) 2 ml UNSCH PRN IV FLUSH 11/27/16 21:45 (NS Flush) 2 ml BID IV FLUSH 11/28/16 09:00 11/28/16 08:40 (Narcan Inj) 0.4 mg UNSCH PRN IV 11/27/16 21:45 (Morphine Inj) 2 mg Q4HR PRN IV PUSH 11/27/16 23:00 11/28/16 08:39 (Protonix Inj) 40 mg DAILY IV PUSH 11/27/16 23:10 11/28/16 08:40 (Pneumovax-23 Inj) 25 mcg ONCE ONCE IM 11/29/16 10:00 11/29/16 10:01 (Valium) 5 mg DAILY PRN PO 11/28/16 04:00 (Cardizem Cd) 300 mg DAILY PO 11/28/16 09:00 11/28/16 08:40 Temazepam 7.5 mg 7.5 mg HS PRN PO 11/28/16 04:00 (Levaquin 750 Mg Premix Inj) 150 ml @ 100 mls/hr Q24H IV 11/28/16 04:15 11/28/16 06:07 A/P Problem List: (1) Abdominal pain ICD Code: R10.9 Status: Acute (2) Abdominal aortic aneurysm (AAA), not a candidate for repair ICD Code: I71.4 Status: Chronic (3) COPD (chronic obstructive pulmonary disease) ICD Code: J44.9 Status: Chronic Assessment and Plan 75-year-old male with history of COPD, chronic respiratory failure on 3 L nasal cannula, CAD, CHF, CABG, large non-operable AAA, anemia on iron supplementation , HTN, HLD, gout presents with a 4-5 day history of abdominal pain. Abdominal Pain/Black Stools, suspected GI Bleed: patient reporting black stool however on iron supplement. Abdominal/Pelvis CT images reviewed, no acute intraabdominal findings other than known AAA, see below. -Check stool hemoccult -Monitor H&H, currently stable at 9.7 -consult gastroenterology, patient known to Dr. Llanes -keep NPO for now -supportive treatment with IVF, pain control, and antiemetics as needed AAA: non-operable, Patient does not want any further evaluation or treatment for AAA. CT abdomen and pelvis reviewed and reveals Large abdominal aortic aneurysm measuring up to 7.3 x 7.0 cm, has enlarged since the prior study from May 2016 when it measured 6.9 x 6.8 cm. -Morphine IV as needed for pain -control blood pressure -counseled on smoking cessation -check lipid panel, consider starting statin Sepsis with Community Acquired Pneumonia: CXR reviewed and reveals mild left lower lobe airspace consolidation and atelectasis at the right lung base. + leukocytosis WBC 14.4, +tachycardia. Afebrile. -continue on IV Levaquin -continue IVF -Mucinex bid Pulmonary nodule: patient reportedly aware of this, does not want any further workup or treatment at this time, he follows with Dr. Ames as outpatient -CT abdomen and pelvis showed 15 mm right lower lobe pulmonary nodule suspicious for pulmonary neoplasm. -Discussed with patient he states he is already aware of this and follows with Dr. Ames- recommend outpatient follow up COPD, O2 Dependent: chronic, patient on oxygen at home at all times. -continue duonebs q6h hank and prn Severe Protein Calorie Malnutrition: BMI 16. Secondary to poor oral intake, also possibility of neoplasm as above. -consult radiography technician -will add Ensure tid to each meal when patient no longer NPO. Hyponatremia: Na 129. suspect secondary to poor oral intake/dehydration -give IVF with NS -repeat BMP Generalized Weakness: suspect multifactorial, chronic deconditioning, malnutrition, advanced COPD -consult PT -considered palliative care consult, however patient wants to go home today if no further intervention by gastroenterology Tobacco Abuse: patient continues to smoke 1 PPD -counseled on tobacco cessation -Nicotine patch qd Hypertension: chronic, control BP with AAA as above -continue patient's home medications -IV Vasotec prn SBP >160 DVT prophylaxis: SCDs CODE status DNR Eleni Hammer PA-C Nov 28, 2016 9:54 am
[2016-11-28] MEDS ORDERED: ENALAPRILAT 1.25 MG/ML VIAL IV PUSH PRN (10:00)
[2016-11-28] MEDS: SODIUM CHLOR 0.9% 1000 ML INJ 1,000 ML IV SCH ×2 (10:04→21:30)
[2016-11-28] MEDS: guaiFENesin E.R. 600 MG TAB PO SCH ×2 (10:04→21:29)
[2016-11-28] MEDS: NICOTINE 21 MG/24 HR PATCH T-DERMAL SCH (10:04)
--- NOTE | 2016-11-28 10:17 | PD.CONS ---
GI Consult GI Consult See Formal GI consultation dictated today also ASSESSMENT/PLAN: 1. Abd and chest pain-? PUD ?AAA ?cardiac 2. OB + stools 3. Anemia-stable 4. Gastric AVM 5. Constipation-worse with iron pills 6. AAA 7. Lung lesion-your W/U in this regard. PLAN: 1. Cont PPI 2. with SOB and abd/CP pt needs cardiac clearance before any procedures are attempted 3. Dr. Llanes will see pt on 11/29/16 It was a pleasure seeing Napoleon Quiroga Thank you for this consult. Entered by: Albino De La Rosa MD Nov 28, 2016 10:16
--- NOTE | 2016-11-28 11:24 | MB ---
cc: KIARRA DOZIER M.D., TWETHIDA MD AGNONE, LOUIS M. MD PASRICHA, SUNIL P. M.D. DATE OF CONSULTATION 11/28/2016 REASON FOR CONSULTATION The patient is a pleasant 76-year-old white male who I have been asked to see for evaluation of abdominal pain and heme-positive stools at the request of his admitting doctor. HISTORY OF PRESENT ILLNESS He apparently had problems with heme-positive stools and iron deficiency anemia in the past and he has been on iron pills and received transfusions. Dr. Llanes saw him in July of 2016, this year. He then performed an upper endoscopy and a subtotal colonoscopy on him at that the hospital here on August 18, 2016. The upper endoscopy revealed gastric AVM which was non-bleeding and was cauterized. The colonoscopy was attempted but was subtotal to the mid-transverse colon due to looping and his large AAA as well as poor preparation. The patient did not follow up in the office afterwards. The patient did call the office yesterday complained of increased abdominal pain rated 10/10. It is associated with severe constipation and some black stools. He then came to the emergency room. His hemoglobin was stable in the emergency room in the 9 range and stools were heme-positive. We were asked to evaluate his situation. He points to the central abdomen where his pain is but on further questioning it is also epigastric and lower chest. He feels short of breath also. His abdominal pain gets worse with eating. He is taking tramadol but no NSAIDs or aspirin products. There has been no odynophagia or heartburn. Occasionally He felt like his heart was racing but denies any excisional chest pain. In regards to his bowels, he has had constipation for some time. He did iron pills and his stools have been black in the past and the iron pills do make the constipation worse. He does have a known abdominal aortic aneurysm that appears to be larger than last time and he does not want anything done with it in that regard. REVIEW OF SYSTEMS CONSTITUTIONAL: Intermittent weight loss. No fever or chills. CARDIOPULMONARY: Please see above. GASTROINTESTINAL: Please see above. Otherwise unremarkable ten-point review of systems. PAST HISTORY Significant for - 1. Gastric AVM. 2. He had a subtotal colonoscopy 3. Heme-positive stools in the past. 4. Iron-deficient anemia. 5. COPD. 6. Coronary artery disease. 7. Arthritis. 8. He is on chronic oxygen. 9. CHF. 10. Hypertension. 11. Dyslipidemia. 12. Gout. PAST SURGICAL HISTORY 1. Inguinal hernia repairs. 2. Coronary artery grafting. 3. Penile implant. 4. Upper endoscopy. 5. Subtotal colonoscopy. MEDICATIONS AN OUTPATIENT 1. Pantoprazole. 1. Temazepam. 2. Diazepam. 3. Cardizem. 4. Albuterol. 5. Also taking a PPI, I believe pantoprazole. ALLERGIES PENICILLIN. MEDICATIONS IN THE HOSPITAL 1. Mucinex. 2. Nicotine. 3. Cardizem. 4. Levofloxacin. 5. Valium. 6. Restoril. 7. Pantoprazole. 8. Narcan. FAMILY HISTORY Noncontributory for any colon cancer or colon polyps. SOCIAL HISTORY He smokes a pack of cigarettes per day for a number of years. No significant alcohol but he drank heavily in the past. PHYSICAL EXAMINATION VITAL SIGNS: Blood pressure is 133/92, pulse of 94, respiratory rate of 18, temperature 98.7. GENERAL: He is a thin male, chronically ill-appearing on nasal oxygen. HEENT: Pupils equal, round, react to light. No scleral icterus. Oropharyngeal cavity has dental caries. No tongue deviation or candidal lesion. No blood was seen in the mouth. NECK: Supple. No thyromegaly or lymphadenopathy. LUNGS: Clear to auscultation and percussion. HEART: Regular rate and rhythm. No obvious murmurs heard. ABDOMEN: Soft. There is a pulsatile mass noted in the mid-abdomen suggestive of a large hiatal hernia. There is no organomegaly or masses otherwise. There is tenderness in the central abdomen but no rebound tenderness. No Vargas sign. EXTREMITIES: No clubbing, cyanosis or edema. NEUROLOGIC: Cranial nerves II through XII are grossly intact. RECTAL: I did not repeat a rectal exam. Apparently was heme-positive. NEUROLOGIC: He is alert and oriented x 3. SKIN: Warm and moist. DATA BASE Imaging revealed a CT scan of the abdomen and pelvis revealed a large abdominal aortic aneurysm, 7.3 x 7 cm, apparent larger than in May. There is emphysema with a pulmonary nodule suspicious for pulmonary neoplasm and he is aware of this. [facility] Hemoglobin when he first came in was 9.6, then dropped to 9.5, now is 9.7. White blood cell count of 14,700, hematocrit 30.6, MCV of 76.3. His lipase is 191 which is normal, SGOT of 11, SGPT of 15, alk phos was 101 which is normal. Total bilirubin 0.3. His CPKs have been negative. Troponins have been negative so far. BUN 26, creatinine 0.93; it dropped to 19 and 0.81. IMPRESSION 1. Abdominal pain - He points to the central abdomen basically where his abdominal aortic aneurysm is but he also has epigastric lower chest pain. His hemoglobin is actually better than it was in the past and he was not taking any aspirin since. He has not had an ulcer on the last upper endoscopy.. He understands the differential is wide-ranging. It could be a peptic ulcer, it could be the abdominal aortic aneurysm but I could not rule out cardiac source. He does have the baseline shortness of breath but he feels a little worse at this time. 2. The patient is heme-positive stool test; please see above differential. He does have known gastric AVMs which are cauterized. He has not had a full colonoscopy as of yet, so I cannot rule out colonic neoplasm, etc. 3. Microcytic anemia that is more likely iron deficiency. 4. Gastric AVM, was cauterized in the past. 5. Constipation that is worse with iron pills. He has had chronic problems. A colonoscopy could not be completed due to looping, poor prep and his abdominal aortic aneurysm. 6. Abdominal aortic aneurysm, quite large. It appears to be larger. Whether this is the cause of his pain is unclear. 7. Lung lesion - Your workup in this regard. RECOMMENDATIONS 1. Continue PPI. 2. With the shortness of breath and abdominal and chest pain and his history of coronary artery disease, before we consider any procedures, I would recommend we get cardiac clearance. The patient may be high risk for any colonoscopy because there is aneurysm but we may consider an upper endoscopy but I want to get cardiac clearance first. 3. Dr. Llanes will see the patient tomorrow and make further recommendations. Albino Blandon MD SP/SSB /10:24 AM /10:47 AM [email or web address]
[2016-11-28] MEDS ORDERED: MAGNESIUM HYDROXIDE SUSP 30 ML CUP PO ONE (12:15)
[2016-11-28 12:34] LABS: CREATINE KINASE 49 U/L (39-308)
[2016-11-28] MEDS: RESP: ALBUTEROL 2.5 MG/IPRATROPIUM 0.5 MG NEB (PRN) NEB (16:52)
--- NOTE | 2016-11-28 17:13 | EKG ---
Date Performed: 11/27/2016 Time Performed: 17:52:06 PTAGE: 76 years EKG: Sinus rhythm LEFT ATRIAL ENLARGEMENT INCOMPLETE RIGHT BUNDLE BRANCH BLOCK LEFT ANTERIOR FASCICULAR BLOCK SEPTAL M YOCARDIAL INFARCTION ABNORMAL ECG PREVIOUS TRACING : 07/18/2016 14.04 Likely no significant change DOCTOR: Tania Larios Interpretating Date/Time 11/28/2016 17:08:56
--- NOTE | 2016-11-28 17:14 | EKG ---
Date Performed: 11/27/2016 Time Performed: 22:59:58 PTAGE: 76 years EKG: Sinus rhythm WITH OCCASIONAL SUPRAVENTRICULAR PREMATURE COMPLEXES POSSIBLE LEFT ATRIAL ENLARGEMENT MARKED LEFT AX IS DEVIATION SEPTAL MYOCARDIAL INFARCTION ABNORMAL ECG PREVIOUS TRACING : 11/27/2016 17.52.06 Since previous tracing, no significant change noted DOCTOR: Tania Larios Interpretating Date/Time 11/28/2016 17:09:28
--- NOTE | 2016-11-28 17:15 | EKG ---
Date Performed: 11/28/2016 Time Performed: 06:31:31 PTAGE: 76 years EKG: SINUS TACHYCARDIA POSSIBLE LEFT ATRIAL ENLARGEMENT LEFT ANTERIOR FASCICULAR BLOCK POSSIBLE LEFT VENTRICULAR HYPERTROPHY NONSPECIFIC T-WAVE ABNORMALITY ABNORMAL ECG PREVIOUS TRACING : 11/27/2016 17.52 Compared to previous tracing, the patient is now tachycardi c. DOCTOR: Tania Larios Interpretating Date/Time 11/28/2016 17:09:48
[2016-11-28] MEDS ORDERED: ONDANSETRON HCL 4 MG/2 ML VIAL IV PUSH PRN (18:00)
[2016-11-29 00:08] VITALS: PULSE 87
[2016-11-29 02:09] VITALS: BP 132/80; PULSE 82; RESP 18; O2SAT 97
[2016-11-29] MEDS: MORPHINE SULFATE 4 MG/ML INJ IV PUSH PRN ×2 (02:14→08:40)
[2016-11-29 03:40] VITALS: BP 156/84; PULSE 79; RESP 16; TEMP 97.8; O2SAT 94
[2016-11-29] MEDS: LEVOFLOXACIN 750 MG PREMIX INJ 150 ML IV SCH (05:07)
[2016-11-29 05:15] LABS: AUTOMATED NEUTROPHIL # 8.6 TH/MM3 (1.8-7.7); BASOPHIL % 0.1 % (0.0-2.0); EOSINOPHIL # 0.3 TH/MM3 (0-0.4); EOSINOPHIL % 2.7 % (0.0-4.0); HEMATOCRIT 29.9 % (39.0-51.0); HEMO FLAGS DIFF FINAL; LYMPH % 9.2 % (9.0-44.0); MEAN CORPUSCULAR HEMOGLOBIN 24.7 PG (27.0-34.0); MEAN CORPUSCULAR HGB CONC 32.1 % (32.0-36.0); MONO % 7.6 % (0.0-8.0); NEUT % 80.4 % (16.0-70.0); PLATELET COUNT 246 TH/MM3 (150-450); RED BLOOD COUNT 3.89 MIL/MM3 (4.50-5.90); RED CELL DISTRIBUTION WIDTH 17.5 % (11.6-17.2); WHITE BLOOD COUNT 10.7 TH/MM3 (4.0-11.0)
[2016-11-29 05:44] LABS: BICARBONATE 27.2 MEQ/L (21.0-32.0)
[2016-11-29] MEDS: RESP: ALBUTEROL 2.5 MG/IPRATROPIUM 0.5 MG NEB (SCH) NEB ×2 (07:33→13:33)
[2016-11-29 07:35] VITALS: BP 155/86; PULSE 86; RESP 17; TEMP 98; O2SAT 98
[2016-11-29] MEDS: PANTOPRAZOLE SODIUM 40 MG VIAL IV PUSH SCH (08:40)
[2016-11-29] MEDS: guaiFENesin E.R. 600 MG TAB PO SCH (08:41)
[2016-11-29] MEDS: NICOTINE 21 MG/24 HR PATCH T-DERMAL SCH (08:41)
[2016-11-29] MEDS: DILTIAZEM-CD 300 MG CAP ER PO SCH (08:41)
[2016-11-29] MEDS: SODIUM CHLORIDE 0.9% FLUSH 10 ML FLUSH IV FLUSH SCH (08:41)
[2016-11-29] MEDS: REMOVE OLD PATCH T-DERMAL SCH (08:42)
[2016-11-29] MEDS ORDERED: PNEUMOCOCCAL POLYVALENT INJ 25 MCG/0.5 ML SYR IM ONE (10:00)
[2016-11-29] MEDS: SODIUM CHLOR 0.9% 1000 ML INJ 1,000 ML IV SCH (11:06)
[2016-11-29] MEDS ORDERED: traMADol HCL 50 MG TAB PO PRN (11:15)
[2016-11-29 11:23] VITALS: BP 144/75; PULSE 84; RESP 17; TEMP 97.7; O2SAT 98
--- NOTE | 2016-11-29 11:23 | HHI.PR ---
Subjective Remarks Follow-up for abdominal pain. The patient continues to complain of lower mid abdomen abdominal discomfort, but states it is improving. He points and locates the pain directly over pulsatile aneurysmal mass. Morphine does help the pain, takes tramadol at home. He feels like the pain is secondary to overusing stool softeners and laxatives prior to coming to the hospital. He states that he was taking 4 Senokot, a suppository, and then 4 more Senokot before the pain acutely worsened. Discussed with the patient and palliative care, the patient wants to continue with conservative management for AAA and probable lung malignancy. The patient had recent EGD and colonoscopy as outpatient. He did have AVMs that were cauterized at the time. He denies any further GI bleeding, denies having rectal exam or still Hemoccult done in the ED. Awaiting GI reevaluation. He is asking for increased diet and to go home today. Objective Vitals Vital Signs Date Time Temp Pulse Resp B/P Pulse Ox O2 Delivery O2 Flow Rate FiO2 11/29/16 07:35 98 Nasal Cannula 3.00 11/29/16 07:35 98.0 86 17 155/86 98 11/29/16 03:40 97.8 79 16 156/84 94 11/29/16 02:30 18 11/29/16 02:09 82 18 132/80 97 11/29/16 00:08 87 11/28/16 23:10 99.0 81 22 149/86 100 11/28/16 20:54 97.8 89 18 139/75 98 11/28/16 19:16 97 Nasal Cannula 3.00 11/28/16 15:09 98.0 84 17 128/80 97 11/28/16 11:16 98.4 100 18 130/91 96 I/O 11/28/16 11/28/16 11/28/16 11/29/16 11/29/16 11/29/16 07:00 15:00 23:00 07:00 15:00 23:00 Intake Total 500 ml Output Total 200 ml 300 ml Balance 300 ml -300 ml Intake Oral 500 ml Output Urine Total 200 ml 300 ml Result Diagram: 11/29/16 0421 11/29/16 0421 Imaging Last Impressions Abdomen/Pelvis CT 11/27/16 1800 Signed Impressions: Service Date/Time: Sunday, November 27, 2016 18:55 - CONCLUSION: 1. Large abdominal aortic aneurysm measuring up to 7.3 x 7.0 cm. This aneurysm has enlarged since the prior study from May 2016 when it measured 6.9 x 6.8 cm. 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 2. Emphysema with 15 mm right lower lobe pulmonary nodule suspicious for pulmonary neoplasm. Marcello Escobar MD Chest X-Ray 11/27/16 0000 Signed Impressions: Service Date/Time: Sunday, November 27, 2016 19:25 - CONCLUSION: 1. Mild left lower lobe airspace consolidation and atelectasis at the right lung base. 2. Calcification of the aorta. Marcello Escobar MD Objective Remarks GENERAL: Well-developed fair-nourished thin patient. In no acute distress. SKIN: Warm and dry. No lesions noted. HEENT: Normocephalic. Pupils equal and round. Mucous membranes pink and moist. CARDIOVASCULAR: Regular rate and rhythm. No murmur appreciated. RESPIRATORY: No accessory muscle use. Clear to auscultation. Breath sounds decreased in the bases. GASTROINTESTINAL: Abdomen soft, nondistended. Decreased Bowel sounds. Large midline pulsatile abdominal mass. MUSCULOSKELETAL: No obvious deformities. No clubbing or cyanosis. No edema. NEUROLOGICAL: Awake and alert. No focal neurological deficits. Moves upper and lower extremities spontaneously. Normal speech. PSYCHIATRIC: Appropriate mood and affect; insight and judgment normal. A/P Problem List: (1) Abdominal pain ICD Code: R10.9 Status: Acute (2) Abdominal aortic aneurysm (AAA), not a candidate for repair ICD Code: I71.4 Status: Chronic (3) COPD (chronic obstructive pulmonary disease) ICD Code: J44.9 Status: Chronic Assessment and Plan 75-year-old male with history of COPD, chronic respiratory failure on 3 L nasal cannula, CAD, CHF, CABG, large non-operable AAA, anemia on iron supplementation , HTN, HLD, gout presents with a 4-5 day history of abdominal pain. Abdominal Pain/Black Stools, possible GI Bleed: patient reporting black stool however on iron supplement. The patient does report abusing stool softeners and laxatives prior to acute onset of abdominal pain prior to admission. Reviewed: Abdominal/Pelvis CT images reviewed, no acute intraabdominal findings other than known AAA, see below. Hemoglobin stable at 9.6. -Monitor H&H -consulted gastroenterology, Dr. Llanes, to follow-up today to consider repeat endoscopy -Clear liquids for now -supportive treatment with IVF, pain control, and antiemetics as needed AAA: non-operable, Patient does not want any further evaluation or treatment for AAA. CT abdomen and pelvis reviewed and reveals Large abdominal aortic aneurysm measuring up to 7.3 x 7.0 cm, has enlarged since the prior study from May 2016 when it measured 6.9 x 6.8 cm. -Enlarging aneurysm is possibly contributing to patient's abdominal pain as above. Consulted palliative care, patient wishes to continue with conservative management. -Home tramadol as needed for pain -control blood pressure -counseled on smoking cessation -Lipid profile essentially within normal limits Sepsis with Community Acquired Pneumonia: CXR reviewed and reveals mild left lower lobe airspace consolidation and atelectasis at the right lung base. + leukocytosis WBC 14.4, +tachycardia. Afebrile. -Leukocytosis has improved -continue on IV Levaquin, change to oral at DC -continue IVF -Mucinex bid Pulmonary nodule: patient reportedly aware of this, does not want any further workup or treatment at this time, he follows with Dr. Ames as outpatient -CT abdomen and pelvis showed 15 mm right lower lobe pulmonary nodule suspicious for pulmonary neoplasm. -Discussed with patient he states he is already aware of this and follows with Dr. Ames- recommended outpatient follow up COPD, O2 Dependent: chronic, patient on oxygen at home at all times. -continue duonebs q6h katharine and prn Severe Protein Calorie Malnutrition: BMI 16. Secondary to poor oral intake, also possibility of neoplasm as above. 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 Generalized Weakness: suspect multifactorial, chronic deconditioning, malnutrition, advanced COPD -consulted PT, no restrictions Tobacco Abuse: patient continues to smoke 1 PPD -counseled on tobacco cessation -Nicotine patch qd Hypertension: chronic, control BP with AAA as above -continue patient's home medications -IV Vasotec prn SBP >160 DVT prophylaxis: SCDs CODE status DNR Discharge Planning Possible discharge home if cleared by gastroenterology. Ambrose Finley Nov 29, 2016 11:23
--- NOTE | 2016-11-29 11:28 | PD.CONS ---
Consult Service Palliative Care Consult Requested By Andrew Finley PA-C / Dr. Mohamud . Primary Care Physician Alex Rosales MD . Reason for Consultation a. To assist with evaluation and management of symptoms including: Pain, dyspnea b. To assist medical decision maker(s) with: better understanding of current medical conditions; weighing benefits/burdens of medical treatment options; making medical treatment decisions. . HPI History of Present Illness This 76-year-old male, with a past history of end-stage COPD, recurrent GI bleeding with anemia, CAD/DE/CHF, and an again "inoperable" AAA, presented to the hospital on 11/27/16 because of abdominal pain. His pain was generalized, cramping in nature, and he described it as a 10 out of 10. He had been constipated recently and thought it may be associated with that. He did not have fever, vomiting, diarrhea, and had not noticed any blood from the GI tract. In the emergency department, findings included: * Moderate pain, alert * Temp 97.7, pulse 86, respirations 18, blood pressure 126/85, oxygen saturation 95% on 3 L * Sodium 128, creatinine 0.93, albumen 3.1 * CT of the abdomen/pelvis revealed a 7.3 x 7.0 cm AAA without apparent rupture , and also revealed a right lower lobe 15 mm nodule that had some characteristics of malignancy * Chest x-ray revealed some possible infiltrate in the left lung The patient noted that he has trouble with constipation intermittently, and it is worse since he has been taking iron for his anemia. He also reports that he has had "a black spot on the right lung" since 1995, and he says he had an evaluation back then that indicated it was benign. He does not want any further evaluation of the lung nodule now. The patient's reports that he has been declining in the past year, spending more time in bed, ambulating less , continuing to lose weight. The patient was admitted, some pain medicine provided, and he began feeling better. His vital signs remained stable, his hemoglobin has remained stable, and he is now wanting to go home. The patient reports that he initiated his own DNR status a few years ago, and he definitely wants to continue that. He has not considered hospice services up to this point in time, but does want to meet with hospice when he gets home with his . Palliative Care was consulted to assist with symptom management, and to enter into discussions with the patient and his regarding his current illnesses and their severity, as well as the benefits and burdens of the various treatment options now. . Function/Cognitive Trajectory The patient is weaker and has been losing weight at home, but he is still able to ambulate a few steps independently around the house with his O2 tubing. He no longer drives. Although the patient told me that he still gets out of the house with his O2 tank and walks outdoors, the patient's tells me he has not done that for quite some time. . Review of Systems Constitutional: COMPLAINS OF: Weight loss, DENIES: Fever Endocrine: DENIES: Polyuria Eyes: DENIES: Eye inflammation Ears, nose, mouth, throat: DENIES: Epistaxis Respiratory: COMPLAINS OF: Cough (chronic), Shortness of breath (chronic) Cardiovascular: COMPLAINS OF: Dyspnea on Exertion, DENIES: Chest pain, PND, Lower Extremity Edema Gastrointestinal: COMPLAINS OF: Abdominal pain, Constipation (intermittent, frequent), DENIES: Vomiting Genitourinary: DENIES: Hematuria Musculoskeletal: DENIES: Back pain Integumentary: DENIES: Rash Hematologic/Lymphatics: DENIES: Bruising Immunologic/Allergic: DENIES: Urticaria Neurologic: DENIES: Headache, Localized weakness, Seizures Psychiatric: COMPLAINS OF: Anxiety ( reports "anxiety attacks"), DENIES: Hallucinations, Agitation Past Family Social History Coded Allergies: Penicillin (Verified Allergy, Unknown, 11/27/16) Patient nor his daughter remember what reaction he had to PCN. Past Medical History * End-stage COPD, oxygen dependent * 7.3 cm AAA, "inoperable" based on his severe comorbidities * Possible pneumonia in the left lung * Right lung nodule, patient refuses further evaluation * GI bleeding, recurrent * Cautery of gastric AVM August 2016 * Anemia requiring transfusion in recent months * CAD/DE/CHF * Anxiety * Hypertension * Degenerative arthritis * Hyperlipidemia * Gout . Past Surgical History Hernia repairs x2 CABG x3 vessel Penile implant Surgical intervention for epistaxis Cataracts Tonsils Colonoscopy August 2016 EGD with cautery of AVM August 2016 . Reported Medications Pantoprazole (Pantoprazole Sodium) 40 Mg Tab 40 Mg PO DAILY Temazepam 7.5 Mg Cap 7.5 Mg PO HS PRN Diazepam 5 Mg Tab 5 Mg PO DAILY PRN Diltiazem CD 24 HR 300 Mg Caper 300 Mg PO DAILY Albuterol Neb (Albuterol Sulfate) 2.5 Mg/3 Ml Neb 2.5 Mg NEB QID NEB . Current Medications Medications (Trade) Dose Ordered Sig/Hank Route Start Time Stop Time Status Last Admin (NS Flush) 2 ml UNSCH PRN IV FLUSH 11/27/16 21:45 (NS Flush) 2 ml BID IV FLUSH 11/28/16 09:00 11/29/16 08:41 (Narcan Inj) 0.4 mg UNSCH PRN IV 11/27/16 21:45 (Morphine Inj) 2 mg Q4HR PRN IV PUSH 11/27/16 23:00 11/29/16 08:40 (Protonix Inj) 40 mg DAILY IV PUSH 11/27/16 23:10 11/29/16 08:40 (Valium) 5 mg DAILY PRN PO 11/28/16 04:00 11/28/16 23:12 (Cardizem Cd) 300 mg DAILY PO 11/28/16 09:00 11/29/16 08:41 Temazepam 7.5 mg 7.5 mg HS PRN PO 11/28/16 04:00 11/28/16 23:12 (Levaquin 750 Mg Premix Inj) 150 ml @ 100 mls/hr Q24H IV 11/28/16 04:15 11/29/16 05:07 (Habitrol 21 Mg Patch.24 Hr) 1 patch DAILY T-DERMAL 11/28/16 09:30 11/29/16 08:41 Miscellaneous Information 1 1 DAILY T-DERMAL 11/28/16 09:30 11/29/16 08:42 (NS 1000 ml Inj) 1,000 ml @ 84 mls/hr [id number] IV 11/28/16 09:45 11/28/16 21:30 (Mucinex Er) 600 mg BID PO 11/28/16 10:00 11/29/16 08:41 (Vasotec Inj) 1.25 mg Q6H PRN IV PUSH 11/28/16 10:00 (Zofran Inj) 4 mg Q6HR PRN IV PUSH 11/28/16 18:00 11/28/16 18:09 Family History Mother 96 still alive, healthy, father at age 70 of heart disease and an aneurysm. Brother secondary to DE, and a sister had colon cancer. . Substance Use Tobacco: Smoking 1 pack per day since he was a teenager Alcohol: History of heavy alcohol use in the past, but he reports only occasional use now Prescription med abuse: None Illicits: None . Psychosocial History The patient was born and raised in [place] [facility]. He moved here with his 9 months ago, and they live in a mobile home on [address]. twice; from first , now for 38 years, but living separately part of the last several years. Currently living together. The patient has 2 sons that live in [place], and his has 2 daughters that live in [place]. 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 . Spiritual/Cultural Factors The patient reports that he is quite spiritual, and has been involved with [employer] in [place] (but not here in [place]). He does not want a spinning frame cleaner visit at this time. . Living Will: Completed, but not made available Health Care Surrogate: Never completed Durable Power of Registered Phlebotomist Part Time: Never completed Today's verbally stated goals: The patient definitely wants to remain DNR. In addition, he would like to speak with a hospice nurse after he gets home and his is present. He is interested in trying to stay out of the hospital and to stay as comfortable as possible. . Family/friends goals: The patient's is in agreement with the patient's goals and wants to support him. . Ethical and Legal Issues There are no ethical issues that would impact his care or decision-making at this time. The patient has capacity for decision making; his will be proxy when he becomes incapacitated for decision-making. . Physical Exam Vital Signs Date Time Temp Pulse Resp B/P Pulse Ox O2 Delivery O2 Flow Rate FiO2 11/29/16 07:35 98 Nasal Cannula 3.00 11/29/16 07:35 98.0 86 17 155/86 98 11/29/16 03:40 97.8 79 16 156/84 94 11/29/16 02:30 18 11/29/16 02:09 82 18 132/80 97 11/29/16 00:08 87 11/28/16 23:10 99.0 81 22 149/86 100 11/28/16 20:54 97.8 89 18 139/75 98 11/28/16 19:16 97 Nasal Cannula 3.00 11/28/16 15:09 98.0 84 17 128/80 97 11/28/16 11:16 98.4 100 18 130/91 96 Exam CONSTITUTIONAL/GENERAL: This is a weak, elderly, thin patient, in no apparent distress. TUBES/LINES/DRAINS: Supplemental O2, peripheral IV SKIN: No jaundice, rashes, or lesions. Ecchymoses on upper extremities. No wounds seen anteriorly. Skin temperature appropriate. Not diaphoretic. HEAD: Atraumatic. Normocephalic. EYES: Pupils equal and round and reactive. Extraocular motions intact. No scleral icterus. No injection or drainage. Fundi not examined. ENT: Hearing grossly normal. Nose without bleeding or purulent drainage. Throat without visible erythema, exudates, masses, or lesions. NECK: Trachea midline. Supple, nontender. No palpable thyroid enlargement or nodularity. CARDIOVASCULAR: Regular rate and rhythm without murmurs, gallops, or rubs. No JVD. Peripheral pulses symmetric. RESPIRATORY/CHEST: Symmetric, diminished respirations. Clear to auscultation. Breath sounds equal bilaterally. A couple scattered rhonchi GASTROINTESTINAL: Abdomen soft, non-tender, nondistended. No hepato-splenomegaly , but there is a large (7 cm) palpable AAA.. No guarding. Bowel sounds present. GENITOURINARY: Without palpable bladder distension. MUSCULOSKELETAL: Extremities without clubbing, cyanosis, or edema. No joint tenderness or effusion noted. No calf tenderness. No mottling or clubbing. LYMPHATICS: No palpable cervical or supraclavicular adenopathy. NEUROLOGICAL: Awake and alert. Motor and sensory grossly within normal limits. Follows commands. Cognitively sharp. Moves all extremities. PSYCHIATRIC: No obvious anxiety/depression. no apparent hallucinations or other psychotic thought process. . Diagnostic Tests Laboratory Laboratory Tests Test 11/27/16 11/27/16 11/27/16 11/28/16 18:20 19:15 22:56 05:41 White Blood Count 7.9 TH/MM3 14.4 TH/MM3 (4.0-11.0) (4.0-11.0) Red Blood Count 3.91 MIL/MM3 4.02 MIL/MM3 (4.50-5.90) (4.50-5.90) Hemoglobin 9.6 GM/DL 9.5 GM/DL 9.7 GM/DL (13.0-17.0) (13.0-17.0) (13.0-17.0) Hematocrit 29.9 % 29.5 % 30.6 % (39.0-51.0) (39.0-51.0) (39.0-51.0) Mean Corpuscular Volume 76.6 FL 76.3 FL (80.0-100.0) (80.0-100.0) Mean Corpuscular Hemoglobin 24.7 PG 24.3 PG (27.0-34.0) (27.0-34.0) Mean Corpuscular Hemoglobin 32.2 % 31.8 % Concent (32.0-36.0) (32.0-36.0) Red Cell Distribution Width 17.7 % 17.7 % (11.6-17.2) (11.6-17.2) Platelet Count 266 TH/MM3 267 TH/MM3 (150-450) (150-450) Mean Platelet Volume 7.7 FL 7.0 FL (7.0-11.0) (7.0-11.0) Neutrophils (%) (Auto) 76.8 % 86.4 % (16.0-70.0) (16.0-70.0) Lymphocytes (%) (Auto) 11.0 % 5.3 % (9.0-44.0) (9.0-44.0) Monocytes (%) (Auto) 9.1 % (0.0-8.0) 7.4 % (0.0-8.0) Eosinophils (%) (Auto) 2.8 % (0.0-4.0) 0.8 % (0.0-4.0) Basophils (%) (Auto) 0.3 % (0.0-2.0) 0.1 % (0.0-2.0) Neutrophils # (Auto) 6.1 TH/MM3 12.5 TH/MM3 (1.8-7.7) (1.8-7.7) Lymphocytes # (Auto) 0.9 TH/MM3 0.8 TH/MM3 (1.0-4.8) (1.0-4.8) Monocytes # (Auto) 0.7 TH/MM3 1.1 TH/MM3 (0-0.9) (0-0.9) Eosinophils # (Auto) 0.2 TH/MM3 0.1 TH/MM3 (0-0.4) (0-0.4) Basophils # (Auto) 0.0 TH/MM3 0.0 TH/MM3 (0-0.2) (0-0.2) CBC Comment DIFF FINAL DIFF FINAL Differential Comment Prothrombin Time 11.0 SEC (9.8-11.6) Prothromb Time International 1.0 RATIO Ratio Activated Partial 27.7 SEC Thromboplast Time (24.3-30.1) Sodium Level 128 MEQ/L 129 MEQ/L (136-145) (136-145) Potassium Level 4.4 MEQ/L 4.3 MEQ/L (3.5-5.1) (3.5-5.1) Chloride Level 90 MEQ/L 93 MEQ/L (98-107) (98-107) Carbon Dioxide Level 31.1 MEQ/L 29.2 MEQ/L (21.0-32.0) (21.0-32.0) Anion Gap 7 MEQ/L (5-15) 7 MEQ/L (5-15) Blood Urea Nitrogen 26 MG/DL (7-18) 19 MG/DL (7-18) Creatinine 0.93 MG/DL 0.81 MG/DL (0.60-1.30) (0.60-1.30) Estimat Glomerular Filtration 79 ML/MIN (>89) 93 ML/MIN (>89) Rate Random Glucose 132 MG/DL 105 MG/DL (74-106) (74-106) Lactic Acid Level 1.3 mmol/L (0.4-2.0) Calcium Level 8.9 MG/DL 8.8 MG/DL (8.5-10.1) (8.5-10.1) Total Bilirubin 0.3 MG/DL (0.2-1.0) Aspartate Amino Transf 11 U/L (15-37) (AST/SGOT) Alanine Aminotransferase 15 U/L (12-78) (ALT/SGPT) Alkaline Phosphatase 101 U/L (45-117) Total Protein 7.6 GM/DL (6.4-8.2) Albumin 3.1 GM/DL (3.4-5.0) Lipase 191 U/L (73-393) Urine Color YELLOW (YELLW/STRAW) Urine Turbidity CLEAR (CLEAR) Urine pH 7.0 (5.0-8.5) Urine Specific [place] 1.020 (1.002-1.035) Urine Protein 30 mg/dL (NEG-TRACE) Urine Glucose (UA) NEG mg/dL (NEG) Urine Ketones NEG mg/dL (NEG) Urine Occult Blood NEG (NEG) Urine Nitrite NEG (NEG) Urine Bilirubin NEG (NEG) Urine Urobilinogen LESS THAN 2.0 MG/DL (LESS THAN 2.0) Urine Leukocyte Esterase NEG (NEG) Urine RBC 1 /hpf (0-3) Urine WBC 2 /hpf (0-5) Urine Hyaline Casts 3 /lpf (RARE) Microscopic Urinalysis Comment CULT NOT INDICATED Total Creatine Kinase 37 U/L (39-308) 42 U/L (39-308) Troponin I LESS THAN 0.02 LESS THAN 0.02 NG/ML NG/ML (0.02-0.05) (0.02-0.05) Blood Type O POSITIVE Antibody Screen NEGATIVE Test 11/28/16 11/29/16 11:39 04:21 Total Creatine Kinase 49 U/L (39-308) Troponin I LESS THAN 0.02 NG/ML (0.02-0.05) White Blood Count 10.7 TH/MM3 (4.0-11.0) Red Blood Count 3.89 MIL/MM3 (4.50-5.90) Hemoglobin 9.6 GM/DL (13.0-17.0) Hematocrit 29.9 % (39.0-51.0) Mean Corpuscular Volume 77.0 FL (80.0-100.0) Mean Corpuscular Hemoglobin 24.7 PG (27.0-34.0) Mean Corpuscular Hemoglobin 32.1 % Concent (32.0-36.0) Red Cell Distribution Width 17.5 % (11.6-17.2) Platelet Count 246 TH/MM3 (150-450) Mean Platelet Volume 7.6 FL (7.0-11.0) Neutrophils (%) (Auto) 80.4 % (16.0-70.0) Lymphocytes (%) (Auto) 9.2 % (9.0-44.0) Monocytes (%) (Auto) 7.6 % (0.0-8.0) Eosinophils (%) (Auto) 2.7 % (0.0-4.0) Basophils (%) (Auto) 0.1 % (0.0-2.0) Neutrophils # (Auto) 8.6 TH/MM3 (1.8-7.7) Lymphocytes # (Auto) 1.0 TH/MM3 (1.0-4.8) Monocytes # (Auto) 0.8 TH/MM3 (0-0.9) Eosinophils # (Auto) 0.3 TH/MM3 (0-0.4) Basophils # (Auto) 0.0 TH/MM3 (0-0.2) CBC Comment DIFF FINAL Differential Comment Sodium Level 130 MEQ/L (136-145) Potassium Level 4.0 MEQ/L (3.5-5.1) Chloride Level 93 MEQ/L (98-107) Carbon Dioxide Level 27.2 MEQ/L (21.0-32.0) Anion Gap 10 MEQ/L (5-15) Blood Urea Nitrogen 19 MG/DL (7-18) Creatinine 0.85 MG/DL (0.60-1.30) Estimat Glomerular Filtration 88 ML/MIN (>89) Rate Random Glucose 95 MG/DL (74-106) Calcium Level 8.1 MG/DL (8.5-10.1) Magnesium Level 2.0 MG/DL (1.5-2.5) Triglycerides Level 34 MG/DL (42-150) Cholesterol Level 99 MG/DL (120-200) LDL Cholesterol 38 MG/DL (0-99) HDL Cholesterol 54.0 MG/DL (40.0-60.0) Cholesterol/HDL Ratio 1.83 RATIO Result Diagram: 11/29/16 0421 11/29/16 0421 Imaging Last Impressions Abdomen/Pelvis CT 11/27/16 1800 Signed Impressions: Service Date/Time: Sunday, November 27, 2016 18:55 - CONCLUSION: 1. Large abdominal aortic aneurysm measuring up to 7.3 x 7.0 cm. This aneurysm has enlarged since the prior study from May 2016 when it measured 6.9 x 6.8 cm. 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 2. Emphysema with 15 mm right lower lobe pulmonary nodule suspicious for pulmonary neoplasm. Marcello Escobar MD Chest X-Ray 11/27/16 0000 Signed Impressions: Service Date/Time: Sunday, November 27, 2016 19:25 - CONCLUSION: 1. Mild left lower lobe airspace consolidation and atelectasis at the right lung base. 2. Calcification of the aorta. Marcello Escobar MD Patient/Family Conference Present at Family Conference: Patient's via telephone . Family Conference Time (mins): 22 Family Conference Location: Bedside, Telephone Issues Discussed: * Palliative care role, purpose, approach * Hospice care role, purpose, approach * Additional medical, psychosocial, and spiritual history * Patients general health, functional status, and cognitive changes in the months leading up to the current hospitalization * Patient/family understanding of the current medical problems * Patient/family understanding of prognosis * Patients goals of care as best understood from advance directives and/or conversations and/or values * Current medical treatment options and benefits/burdens of those options * Likely scenarios comparing ongoing aggressive care with a transition to comfort measures only * Questions answered to the best of my ability * Palliative care contact information provided The patient definitely wants to remain DNR. In addition, he would like to speak with a hospice nurse after he gets home and his is present. He is interested in trying to stay out of the hospital and to stay as comfortable as possible. . Assessment and Plan Disease Oriented Problem List: (1) end-stage COPD, oxygen dependent (2) 7.3 cm AAA, "inoperable" due to his severe comorbidities (3) GI bleeding, recurrent (4) possible pneumonia, left lung (5) right lung nodule, patient refuses further evaluation (6) anemia requiring transfusion in recent months (7) cautery of gastric AVM, August 2016 (8) gout (9) hyperlipidemia (10) CAD/DE/CHF (11) hypertension (12) anxiety (13) degenerative arthritis Symptom Scale: (1) anxiety 0-10 Scale: 2 (worse when he is dyspneic) (2) pain 0-10 Scale: 1 (nearly resolved) (3) dyspnea 0-10 Scale: 4 (worse with minimal exertion) Pertinent Non-Medical Issues Psychosocial: , 2 children, 2 stepchildren, 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 He does not want a spinning frame cleaner visit at this time. Legal: The patient has capacity for decision-making. He is okay with his serving as healthcare proxy when the time comes that he lacks capacity. Ethical issues impacting care: None . Important Contacts Spouse: Oma Quiroga -- [phone] . Prognosis This patient has end-stage COPD, with chronic respiratory failure, weight loss, worsening weakness; and he is appropriate for hospice services if his goals become comfort oriented. He also has an aneurysm that could rupture and cause at any time. . Code Status: No Code Plan * DO NOT RESUSCITATE * Decision-Making: The patient has capacity for decision-making. He is okay with his serving as healthcare proxy when the time comes that he lacks capacity. * GOALS: The patient definitely wants to remain DNR. In addition, he would like to speak with a hospice nurse after he gets home and his is present. He is interested in trying to stay out of the hospital and to stay as comfortable as possible. I have notified hospice and they will contact the patient and his tomorrow. * SYMPTOMS: The patient's pain has nearly resolved, and I did discuss with him ways to avoid the constipation issues in the future. If you will accept hospice services, I am certain that a benzodiazepine would be quite useful. Hospice is to meet with him and his after he gets home. * Palliative Care will continue to follow the patient during this hospitalization. . Time Spent Total Floor Time (mins): 79 Face to Face Time (mins): 33 >50% Counseling/Coord of Care: Yes (d/w/ T Long and with RN) Thank you for the opportunity to participate in the care of Mr. Quiroga. Attestation To help prompt me to consider important information that might be impacting today's encounter and assessment, information from prior notes written by myself or my colleagues may have been "brought forward" into today's note. My signature on this note, however, is an attestation that I personally performed the exam, history, and/or decision-making noted today, and, unless otherwise indicated, the interactions with patient, family, and staff as well as the review of records all occurred today. I also attest that the listed assessment and stated plan reflect my best clinical judgment today based on the combination of historical information, prior notes, and today's exam/ interactions. When time spent is documented, it refers only to time spent today by the signer, or if indicated, combined time spent today by collaborating physician/nurse practitioner. Laura Vora MD Nov 29, 2016 11:28
--- NOTE | 2016-11-29 12:26 | HHI.GIFU ---
GI Follow-up Note Consult Follow-up Subjective: Patient laying in bed comfortably, appetite much better and abd pain minimal. Chart reviewed. Objective: PHYSICAL EXAMINATION: Vitals signs stable No fever ABDOMEN: Soft, nondistended, large palpable aortic aneurysm. Mild tenderness. SKIN: warm and dry WATERMASTER: alert and oriented times three. Available Data (labs, X- Rays, Procedues) : ASSESSMENT/PLAN: 1. Abdominal pain-improved. Not sure if pain was due to his constipation or aneurysm. I suggested he have a gastrograffin enema to evaluate the proximal colon but he does not want anything else done and he wants to go home. 2. Constipation-I advised him on some things to try such as fiber, miralax, stool softeners and prn glycerine suppositories. If ineffective may respond to TruLance. OK to discharge from my standpoint. It was a pleasure seeing Napoleon Quiroga Thank you for this consult. Entered by: Rodney Lin MD Nov 29, 2016 12:26
[2016-11-29] MEDS ORDERED: PERI8.6T PO (12:39)
--- NOTE | 2016-11-29 12:41 | HHI.DS ---
Discharge Summary Admission Date Nov 27, 2016 at 20:39 Discharge Date: Nov 29, 2016 Admitting Diagnosis intractable abdominal pain, GI bleed, AAA (non surgical) (1) Abdominal pain ICD Code: R10.9 Diagnosis: Principal (2) Abdominal aortic aneurysm (AAA), not a candidate for repair ICD Code: I71.4 Diagnosis: Principal (3) COPD (chronic obstructive pulmonary disease) ICD Code: J44.9 Diagnosis: Secondary Procedures none Brief History - From Admission 75-year-old male with history of COPD, chronic respiratory failure on 3 L nasal cannula, CAD, CHF, CABG, large non-operable AAA, anemia on iron supplementation , HTN, HLD, gout. Presents to the ER today because abdominal pain. Patient reports, "my stomach was hurting really really bad." Patient reports he has had abdominal pain for the past week which has gotten worse over the past 3 days. Patient reports pain in the generalized abdominal area. Patient also reports he was constipated so he took 4 Senokot at home with no relief then took an enema and start having black stool. Patient denies BRBPR. Patient reports last had colonoscopy with cauterization was [address] Crews. Patient also reports he has been short of breath after having to go to the bathroom. Patient has a productive cough. Patient reports he is able to produce phlegm after his nebulizer treatments. Patient is unsure of the color. Patient endorses chills when he gets into bed at night which has been going on for, "a long time." Also complaints of chronic back, neck and shoulder pain- per patient this is at his baseline. Patient has a large AAA 7.3cm x 7.0cm- which per patient is not operable. Patient states. "I don't want to do anything about it. If it's my time, its my time." Patient also wishes to be a DNR, "if my heart stops just let me go." Denies fever, nausea, vomiting or chest pain. CBC/BMP: 11/29/16 0421 11/29/16 0421 Significant Findings Laboratory Tests Test 11/27/16 11/27/16 11/27/16 11/28/16 18:20 19:15 22:56 05:41 Red Blood Count 3.91 MIL/MM3 4.02 MIL/MM3 (4.50-5.90) (4.50-5.90) Hemoglobin 9.6 GM/DL 9.5 GM/DL 9.7 GM/DL (13.0-17.0) (13.0-17.0) (13.0-17.0) Hematocrit 29.9 % 29.5 % 30.6 % (39.0-51.0) (39.0-51.0) (39.0-51.0) Mean Corpuscular Volume 76.6 FL 76.3 FL (80.0-100.0) (80.0-100.0) Mean Corpuscular Hemoglobin 24.7 PG 24.3 PG (27.0-34.0) (27.0-34.0) Red Cell Distribution Width 17.7 % 17.7 % (11.6-17.2) (11.6-17.2) Neutrophils (%) (Auto) 76.8 % 86.4 % (16.0-70.0) (16.0-70.0) Monocytes (%) (Auto) 9.1 % (0.0-8.0) Lymphocytes # (Auto) 0.9 TH/MM3 0.8 TH/MM3 (1.0-4.8) (1.0-4.8) Sodium Level 128 MEQ/L 129 MEQ/L (136-145) (136-145) Chloride Level 90 MEQ/L 93 MEQ/L (98-107) (98-107) Blood Urea Nitrogen 26 MG/DL (7-18) 19 MG/DL (7-18) Estimat Glomerular Filtration 79 ML/MIN (>89) Rate Random Glucose 132 MG/DL (74-106) Aspartate Amino Transf 11 U/L (15-37) (AST/SGOT) Albumin 3.1 GM/DL (3.4-5.0) Urine Protein 30 mg/dL (NEG-TRACE) Total Creatine Kinase 37 U/L (39-308) Troponin I LESS THAN 0.02 LESS THAN 0.02 NG/ML NG/ML (0.02-0.05) (0.02-0.05) White Blood Count 14.4 TH/MM3 (4.0-11.0) Mean Corpuscular Hemoglobin 31.8 % Concent (32.0-36.0) Lymphocytes (%) (Auto) 5.3 % (9.0-44.0) Neutrophils # (Auto) 12.5 TH/MM3 (1.8-7.7) Monocytes # (Auto) 1.1 TH/MM3 (0-0.9) Test 11/28/16 11/29/16 11:39 04:21 Troponin I LESS THAN 0.02 NG/ML (0.02-0.05) Red Blood Count 3.89 MIL/MM3 (4.50-5.90) Hemoglobin 9.6 GM/DL (13.0-17.0) Hematocrit 29.9 % (39.0-51.0) Mean Corpuscular Volume 77.0 FL (80.0-100.0) Mean Corpuscular Hemoglobin 24.7 PG (27.0-34.0) Red Cell Distribution Width 17.5 % (11.6-17.2) Neutrophils (%) (Auto) 80.4 % (16.0-70.0) Neutrophils # (Auto) 8.6 TH/MM3 (1.8-7.7) Sodium Level 130 MEQ/L (136-145) Chloride Level 93 MEQ/L (98-107) Blood Urea Nitrogen 19 MG/DL (7-18) Estimat Glomerular Filtration 88 ML/MIN (>89) Rate Calcium Level 8.1 MG/DL (8.5-10.1) Triglycerides Level 34 MG/DL (42-150) Cholesterol Level 99 MG/DL (120-200) Imaging Last Impressions Abdomen/Pelvis CT 11/27/16 1800 Signed Impressions: Service Date/Time: Sunday, November 27, 2016 18:55 - CONCLUSION: 1. Large abdominal aortic aneurysm measuring up to 7.3 x 7.0 cm. This aneurysm has enlarged since the prior study from May 2016 when it measured 6.9 x 6.8 cm. 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 2. Emphysema with 15 mm right lower lobe pulmonary nodule suspicious for pulmonary neoplasm. Marcello Escobar MD Chest X-Ray 11/27/16 0000 Signed Impressions: Service Date/Time: Sunday, November 27, 2016 19:25 - CONCLUSION: 1. Mild left lower lobe airspace consolidation and atelectasis at the right lung base. 2. Calcification of the aorta. Marcello Escobar MD PE at Discharge GENERAL: Well-developed fair-nourished thin patient. In no acute distress. SKIN: Warm and dry. No lesions noted. HEENT: Normocephalic. Pupils equal and round. Mucous membranes pink and moist. CARDIOVASCULAR: Regular rate and rhythm. No murmur appreciated. RESPIRATORY: No accessory muscle use. Clear to auscultation. Breath sounds decreased in the bases. GASTROINTESTINAL: Abdomen soft, nondistended. Decreased Bowel sounds. Large midline pulsatile abdominal mass. MUSCULOSKELETAL: No obvious deformities. No clubbing or cyanosis. No edema. NEUROLOGICAL: Awake and alert. No focal neurological deficits. Moves upper and lower extremities spontaneously. Normal speech. PSYCHIATRIC: Appropriate mood and affect; insight and judgment normal. Hospital Course 75-year-old male with history of COPD, chronic respiratory failure on 3 L nasal cannula, CAD, CHF, CABG, large non-operable AAA, anemia on iron supplementation , HTN, HLD, gout presents with a 4-5 day history of abdominal pain. Abdominal Pain/Black Stools, possible GI Bleed: patient reporting black stool however on iron supplement. The patient does report abusing stool softeners and laxatives prior to acute onset of abdominal pain prior to admission. Reviewed: Abdominal/Pelvis CT images reviewed, no acute intraabdominal findings other than known AAA, see below. Hemoglobin stable at 9.6. -Monitor H&H -consulted gastroenterology, Dr. Llanes, to follow-up today to consider repeat endoscopy -Clear liquids for now -supportive treatment with IVF, pain control, and antiemetics as needed AAA: non-operable, Patient does not want any further evaluation or treatment for AAA. CT abdomen and pelvis reviewed and reveals Large abdominal aortic aneurysm measuring up to 7.3 x 7.0 cm, has enlarged since the prior study from May 2016 when it measured 6.9 x 6.8 cm. -Enlarging aneurysm is possibly contributing to patient's abdominal pain as above. Consulted palliative care, patient wishes to continue with conservative management. -Home tramadol as needed for pain -control blood pressure -counseled on smoking cessation -Lipid profile essentially within normal limits Sepsis with Community Acquired Pneumonia: CXR reviewed and reveals mild left lower lobe airspace consolidation and atelectasis at the right lung base. + leukocytosis WBC 14.4, +tachycardia. Afebrile. -Leukocytosis has improved -continue on IV Levaquin, change to oral at DC -continue IVF -Mucinex bid Pulmonary nodule: patient reportedly aware of this, does not want any further workup or treatment at this time, he follows with Dr. Ames as outpatient -CT abdomen and pelvis showed 15 mm right lower lobe pulmonary nodule suspicious for pulmonary neoplasm. -Discussed with patient he states he is already aware of this and follows with Dr. Ames- recommended outpatient follow up COPD, O2 Dependent: chronic, patient on oxygen at home at all times. -continue duonebs q6h katharine and prn Severe Protein Calorie Malnutrition: BMI 16. Secondary to poor oral intake, also possibility of neoplasm as above. -consulted machine assistant -added Ensure tid to each meal when patient no longer NPO. Generalized Weakness: suspect multifactorial, chronic deconditioning, malnutrition, advanced COPD -consulted PT, no restrictions Tobacco Abuse: patient continues to smoke 1 PPD -counseled on tobacco cessation -Nicotine patch qd Hypertension: chronic, control BP with AAA as above -continue patient's home medications -IV Vasotec prn SBP >160 DVT prophylaxis: SCDs CODE status DNR Discharge Planning Cleared by gastroenterology. Discharge home in stable condition, to follow up as OP with PCP and consultants. Pt Condition on Discharge: Guarded Discharge Disposition: Discharge Home Discharge Time: > 30 minutes Discharge Instructions DIET: Follow Instructions for: As Tolerated, No Restrictions Follow up Referrals: Gastroenterology - 2 Weeks with Rodney Llanes MD PCP Follow-up - 1 Week with Alex Rosales MD New Medications: Levofloxacin (Levofloxacin) 750 Mg Tablet 750 MG PO DAILY Infection #5 Ref 0 TAB Sennosides-Docusate Sodium (Sagrario-Colace) 8.6-50 Mg Tab 1 TAB PO BID Constipation #60 Ref 0 TAB Continued Medications: Albuterol Neb (Albuterol Neb) 2.5 Mg/3 Ml Neb 2.5 MG NEB QID NEB Breathing Treatment #60 Ref 0 NEBULE Diazepam (Diazepam) 5 Mg Tab 5 MG PO DAILY PRN ANXIETY Ref 0 TAB Diltiazem CD 24 HR (Diltiazem CD 24 HR) 300 Mg Caper 300 MG PO DAILY #30 Ref 0 CAP Pantoprazole (Pantoprazole) 40 Mg Tab 40 MG PO DAILY Reflux #30 Ref 0 TAB Temazepam (Temazepam) 7.5 Mg Cap 7.5 MG PO HS PRN INSOMNIA Ref 0 CAP Meme Mohamud MD Nov 29, 2016 12:41
[2016-11-29] MEDS ORDERED: LEVO750T3 PO (12:42)
== END 2016-11-29 16:37 | disposition home or self-care (01) ==
LOC: NEPC 17:04 → NEDA 20:39 → NEPFCDU 23:20
PROVIDERS: ADMIT Hospitalist; ATTEND Hospitalist
DX: A41.9 Sepsis, unspecified organism (principal); J44.0 Chronic obstructive pulmonary disease with (acute) lower respiratory infection; J18.9 Pneumonia, unspecified organism; I71.4 Abdominal aortic aneurysm, without rupture; K59.00 Constipation, unspecified; K31.819 Angiodysplasia of stomach and duodenum without bleeding; R19.5 Other fecal abnormalities; E43 Unspecified severe protein-calorie malnutrition; E87.1 Hypo-osmolality and hyponatremia; J96.10 Chronic respiratory failure, unspecified whether with hypoxia or hypercapnia; R53.1 Weakness; R91.1 Solitary pulmonary nodule; I25.10 Atherosclerotic heart disease of native coronary artery without angina pectoris; I11.0 Hypertensive heart disease with heart failure; I50.9 Heart failure, unspecified; F17.210 Nicotine dependence, cigarettes, uncomplicated; M19.90 Unspecified osteoarthritis, unspecified site; I25.2 Old myocardial infarction; K21.9 Gastro-esophageal reflux disease without esophagitis; D64.9 Anemia, unspecified; Z66 Do not resuscitate; Z95.1 Presence of aortocoronary bypass graft; Z68.1 Body mass index [BMI] 19.9 or less, adult; Z99.81 Dependence on supplemental oxygen; Z88.0 Allergy status to penicillin; Y95 Nosocomial condition
CPT/HCPCS: 71010; 74177; 80048; 80053; 80061; 81001; 82550; 83605; 83690; 83735; 84484; 85014; 85018; 85025; 85610; 85730; 86850; 86900; 86901; 90732; 93005; 94640; 94664; 96360; 97110; 97116; 97162; 99285; C9113; G0378; G8987; G8988; J1956; J2270; J2405; J7030; Q9967